=== PATIENT | female | born 1960 | race Caucasian/White ===

== ENCOUNTER 2018-04-09 16:08 | Emergency (ER) | payer OTHER ==
[~2018-04-09] VITALS: Ht 170.2 cm; Wt 59.0 kg
[~2018-04-09 16:08] MED LIST: BENTYL10 MG PO; PANTOPRAZOLE SO40 MG PO; ZOFRAN ODT4 MG
[2018-04-09 16:40] LABS: BASOPHILS % 0.3 % (0.0-1.0); EOSINOPHILS # (AUTO) 0.1 (0.0-0.4); EOSINOPHILS % 0.6 % (0.0-6.0); HEMATOCRIT 46.5 % (34.2-44.1); HEMOGLOBIN 16.7 g/dL (12.0-16.0); LYMPHOCYTES # (AUTO) 3.1 (1.0-3.2); LYMPHOCYTES % 33.7 % (18.0-39.1); MEAN CORPUSCULAR HEMOGLOBIN 34.6 pg (28-32); MEAN CORPUSCULAR HGB CONC 35.9 g/dL (31-35); MEAN CORPUSCULAR VOLUME 96.5 fL (81-99); MONOCYTES # (AUTO) 1.1 (0.2-0.8); MONOCYTES % 11.4 % (4.4-11.3); NEUTROPHILS % 53.7 % (38.7-80.0); PLATELET COUNT 369 x10e3/uL (140-360); RED BLOOD COUNT 4.82 x10e6/uL (3.6-5.1); RED CELL DISTRIBUTION WIDTH 13.5 % (11.7-14.4)
[2018-04-09 16:44] LABS: INR 0.98; PROTHROMBIN TIME 12.2 seconds (11.9-14.5)
[2018-04-09 16:45] LABS: PARTIAL THROMBOPLASTIN TIME 27.7 seconds (23.8-35.5)
[2018-04-09 16:53] LABS: ALANINE AMINOTRANSFERASE 51 IU/L (0-55); ALBUMIN 4.6 g/dL (3.5-5.0); ALKALINE PHOSPHATASE 94 IU/L (40-150); AMYLASE 64 U/L (25-125); ANION GAP 21.2 mmol/L (8-16); BLOOD UREA NITROGEN 12 mg/dL (7-26); BUN/CREATININE RATIO 13 (6-25); CALCIUM 10.3 mg/dL (8.4-10.2); CARBON DIOXIDE 23 mmol/L (22-29); CHLORIDE 97 mmol/L (98-107); CREATINE KINASE 103 IU/L (29-168); CREATININE, SERUM 0.89 mg/dL (0.57-1.11); EST GLOMERULAR FILTRATION RATE > 60 ML/MIN (60-); GLUCOSE 110 mg/dL (74-118); LIPASE 32 U/L (8-78); POTASSIUM 4.2 mmol/L (3.5-5.1); SODIUM 137 mmol/L (136-145)
[2018-04-09] MEDS: SODIUM CHLORIDE 0.9% 1000ML 1,000 ML IV STA ×2 (17:14→19:50)
[2018-04-09] MEDS: ONDANSETRON HCL INJ 2 MG/ML VIAL IV STA (17:15)
[2018-04-09] MEDS: DONNATAL/LIDOCAINE/MAALOX 30 ML SUSP PO ONE (18:01)
[2018-04-09] MEDS ORDERED: MAGNESIUM/ALUMINUM/SIMETHICONE 30 ML UDC ONE (18:02)
[2018-04-09] MEDS ORDERED: BELLADONNA ALK/PHENOBARBITAL 5 ML UDC ONE (18:02)
[2018-04-09] MEDS ORDERED: LIDOCAINE VISC 2% SOLN 15 ML UDC ONE (18:02)
--- NOTE | 2018-04-09 19:07 | Diagnostic Imaging Report ---
EXAMINATION: PA and lateral views of the chest. COMPARISON: Portable chest 07/18/2012 CLINICAL HISTORY: Chest pain DISCUSSION: Lines/tubes: None. Lungs: The lungs are well inflated and grossly clear. There is no evidence of consolidation or pulmonary edema. Pleura: There is no pleural effusion or pneumothorax. Heart and mediastinum: Cardiomediastinal silhouette is unremarkable. Pulmonary vasculature is normal. Bones and soft tissues: No acute bony abnormalities. IMPRESSION: No acute cardiopulmonary abnormalities. Signed by: Dr. Alessandro Naqvi M.D. on 04/09/2018 7:04 PM
--- NOTE | 2018-04-09 19:18 | Diagnostic Imaging Report ---
EXAMINATION: CT of the abdomen and pelvis with contrast. TECHNIQUE: Spiral CT images of the abdomen and pelvis were performed from the lung bases to the lesser trochanters after the intravenous administration of 100 cc of Isovue 300 and the oral administration of water. Coronal and sagittal reformatted images were obtained. COMPARISON: CT abdomen and pelvis 01/18/2016 CLINICAL HISTORY:Epigastric pain, nausea and vomiting for 4 days DISCUSSION: ABDOMEN/PELVIS: LOWER THORAX:Stable bilateral emphysematous changes. 6 mm subpleural pulmonary nodule in the right lower lobe (series 2, image 4). Mild bilateral lower lobe dependent atelectasis. Linear subsegmental atelectasis versus scarring in the right middle lobe HEPATOBILIARY: Diffusely decreased attenuation of the hepatic parenchyma compared to the spleen, consistent with steatosis. No focal lesions. No intra or extrahepatic biliary ductal dilation. GALLBLADDER: No radio-opaque stones or sludge. No wall thickening. SPLEEN: No splenomegaly. PANCREAS: No focal masses or ductal dilatation. ADRENALS: Stable 4.1 x 2.4 cm right and 2.2 x 2.8 cm left low density adrenal masses (series 2, images 26 and 23).. KIDNEYS/URETERS: No hydronephrosis, stones, or solid mass lesions. Stable fluid density 0.9 cm simple cyst in the anterior right interpolar region (series 2, image 35). Stable 1.5 cm fluid density simple cyst in the right interpolar region (series 2, image 31). Bilateral extrarenal pelves.. PELVIC ORGANS/BLADDER: Bladder is moderately distended but grossly unremarkable. No wall thickening or focal lesions. Uterus is unremarkable. No adnexal masses. PERITONEUM/RETROPERITONEUM: No free air or fluid. LYMPH NODES: No intra-abdominal, retroperitoneal, pelvic or inguinal lymphadenopathy. VESSELS: Atherosclerotic calcification of the abdominal aorta and iliac vessels. GI TRACT: No bowel dilation or evidence of obstruction. No pericolonic inflammatory changes. Scattered diverticula in the distal descending and sigmoid colon, without diverticulitis. Stomach is unremarkable. BONES AND SOFT TISSUE: No aggressive lytic lesions. Marked facet hypertrophy L4-L5 and L5-S1. Soft tissues are grossly unremarkable. IMPRESSION: 1. No acute abdominopelvic abnormalities. Essentially unremarkable appearance of the bowel. 2. Diffuse hepatic steatosis. No focal lesions. 3. Stable bilateral adrenal low density masses, which may represent adenomas. CT abdomen with adrenal mass protocol is recommended on a nonemergent basis. 4. Stable emphysematous changes. 6 mm subpleural pulmonary nodule in the right lower lobe. Recommend follow-up chest CT in 12 months to document stability. . Signed by: Dr. Alessandro Naqvi M.D. on 04/09/2018 7:15 PM
[2018-04-09] MEDS: MORPHINE SULFATE 5 MG/ML VIAL IV ONE (20:02)
[2018-04-09] MEDS: MORPHINE SULFATE 2 MG/ML SYR IV STA (20:03)
[2018-04-09] MEDS ORDERED: IOPAMIDOL 370 MG/ML 200 ML INFUS..BTL INJ ONE (21:19)
[2018-04-09] MEDS ORDERED: SODIUM CHLORIDE 0.9% 50ML 50 ML ONE (21:19)
== END 2018-04-09 21:06 | disposition home or self-care (01) ==
LOC: ER 16:08
DX: R10.13 Epigastric pain (principal); E86.9 Volume depletion, unspecified; K52.9 Noninfective gastroenteritis and colitis, unspecified; K21.9 Gastro-esophageal reflux disease without esophagitis
CPT/HCPCS: 36415; 71046; 74177; 80053; 82150; 82550; 82553; 83690; 83735; 84484; 85025; 85610; 85730; 93005; 99284; J2270; J2405; J7030; Q9967

== ENCOUNTER 2020-05-18 12:13 | Emergency (ER) | payer SELFPAY ==
[~2020-05-18] VITALS: Ht 170.2 cm; Wt 59.0 kg
--- OUTSIDE RECORDS SUMMARY | 2020-05-18 13:08 | XMS REPORT | Clinical Summary ---
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 Active omeprazole (PriLOSEC) 20 Take 20 mg by 0 MG capsule mouth daily. Active metoprolol Take 1 tablet 0 ta-hydrochlorothiaz by mouth 2 (LOPRESSOR HCT) 50-25 mg (two) times a per tablet day. Active bismuth subsalicylate Take 15 mL by 0 (PEPTO BISMOL) 262 mg/15 mouth every 6 mL suspension (six) hours as needed for indigestion. Active loperamide (IMODIUM) 2 mg Take 2 mg by 0 capsule mouth 4 (four) times a day as needed for diarrhea. Active ibuprofen (ADVIL) 200 MG Take 200 mg 0 tablet by mouth every 6 (six) hours as needed for mild pain. 03/02/2020 Discontinued sulfamethoxazole-trimetho Take 1 tablet 10 tablet 0 prim (BACTRIM DS) 800-160 by mouth 0 mg per tablet every 12 (twelve) hours for 5 days. 03/07/2020 sulfamethoxazole-trimetho Take 1 tablet 10 tablet 0 prim (BACTRIM DS) 800-160 by mouth 0 mg per tablet every 12 (twelve) hours for 5 days. 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 06/21/2017 Cancer Staging: Pathologic stage from : Stage IB (T2a, N0, cM0) - Signed by Gildardo Chaidez MD on 06/30/20 17 Adenocarcinoma 05/29/2017 Urinary tract infection without hematuria 05/10/2017 Generalized abdominal pain 05/10/2017 Overview: Added automatically from request for joaquin pineda [id number] Encounters Care Team Description Date Type Specialty Jerome Saenz MD Solis, Daniel P., MD Nguyen, Daniel Nha, MD Pyelonephritis (Primary Dx); Nausea and vomiting, intractability of vomiting not specified, unspecified vomiting type 03/01/2020 Emergency General Internal Me dicine - 03/02/2020 Shawn Navarro MD 01/20/2020 Telephone Lab Rajesh Jo MD Shortness of breath (Primary Dx) 01/14/2020 Emergency Emergency Medicine 01/14/2020 Travel Jas Frederick MD Mastodynia (Primary Dx); Family history of malignant neoplasm of breast 08/15/2019 Transcribe Access Orders after 05/18/2019 Family History Medical History Relation Name Comments Heart disease Father Cancer Mother Diabetes Mother Heart disease Mother Relation Name Status Comments Father Mother Social History Date Tobacco Use Types Packs/Day Years Used Current Every Day Smoker Cigarettes 0.25 40 Smokeless Tobacco: Never Used Tobacco Cessation: Counseling Given: Yes Drinks/Week oz/Week Comments Alcohol Use No Sex Assigned at Date Recorded Not on file Industry Job Start Date Occupation Not on file Not on file Not on file Travel End Travel History Travel Start No recent travel history available. Last Filed Vital Signs Reading Time Taken Comments Vital Sign 150/85 03/02/2020 3:24 PM CDT Blood Pressure 75 03/02/2020 3:24 PM CDT Pulse 36.2 C (97.2 F) 03/02/2020 3:24 PM CDT Temperature 19 03/02/2020 3:24 PM CDT Respiratory Rate 96% 03/02/2020 3:24 PM CDT Oxygen Saturation - - Inhaled Oxygen Concentration 59 kg (130 lb 1.1 oz) 03/01/2020 4:10 PM CDT Weight 167.6 cm (5' 6") 03/01/2020 5:45 PM CDT Height 20.99 03/01/2020 4:10 PM CDT Body Mass Index Plan of Treatment Health Maintenance Due Date Last Done Comments CERVICAL CANCER SCREENING 1982 COLONOSCOPY SCREENING 2011 SHINGLES VACCINES (#1) 2011 INFLUENZA VACCINE 05/15/2020 BREAST CANCER SCREENING 08/21/2021 08/21/2019 Implants Device Identifier Shelf Expiration Date Model / Serial / L ot Implanted 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 [id number] / / Matrix [employer] Floseal 5ml W/ Humn F2 Surgical N/A: N/A AGOSTO - [id number] Implants; BIOSCIENCE Implanted: 06[facility]21/2017 [facility] Extenders; Surgical Wires [id number] / / [employer] Floseal 5ml W/ Humn F2 Surgical N/A: N/A AGOSTO - [id number] Implants; BIOSCIENCE Implanted: 06/21/2017 at [facility] not on file) Extenders; Surgical Wires 09/11/2021 [id number] / / [id number] Particle [employer] Absrbl Bonnie 5gm Surgical N/A: N/A MEDAFOR Mph - [id number] Implants; Implanted: 06/21/2017 at [facility] ([facility] not on file) Extenders; Surgical Wires Procedures Comments Procedure Name Priority Date/Time Associated Diag nosis US GALLBLADDER Routine 03/02/2020 9:34 AM CDT ESTIMATED GFR Routine 03/02/2020 5:05 AM CDT HC COMPLETE BLD COUNT Routine 03/02/2020 W/AUTO DIFF 5:05 AM CDT COMPREHENSIVE METABOLIC Routine 03/02/2020 PANEL 5:05 AM CDT TROPONIN Timed 03/01/2020 5:00 PM CDT LACTIC ACID LEVEL, SEPSIS Timed 03/01/2020 - NOW AND REPEAT 2X EVERY 5:00 PM CDT 3 HOURS BLOOD CULTURE, AEROBIC & Routine 03/01/2020 ANAEROBIC 2:44 PM CDT BLOOD CULTURE, AEROBIC & Routine 03/01/2020 ANAEROBIC 2:40 PM CDT LIPASE LEVEL Routine 03/01/2020 2:34 PM CDT TROPONIN Timed 03/01/2020 2:34 PM CDT LACTIC ACID LEVEL, SEPSIS Timed 03/01/2020 - NOW AND REPEAT 2X EVERY 2:34 PM CDT [address] CHEST W CONTRAST STAT 03/01/2020 ABDOMEN W CONTRAST PELVIS 1:14 PM CDT W CONTRAST ECG 12-LEAD STAT 03/01/2020 11:11 AM CDT URINE CULTURE STAT 03/01/2020 11:04 AM CDT URINALYSIS SCREEN AND STAT 03/01/2020 MICROSCOPY, WITH REFLEX 10:50 AM CDT TO CULTURE ECG ED PRELIMINARY Routine 03/01/2020 INTERPRETATION 10:49 AM CDT CREATINE KINASE, TOTAL STAT 03/01/2020 (CPK) 10:43 AM CDT B NATRIURETIC PEPTIDE STAT 03/01/2020 10:43 AM CDT TROPONIN STAT 03/01/2020 10:43 AM CDT ESTIMATED GFR STAT 03/01/2020 10:43 AM CDT LACTIC ACID LEVEL, SEPSIS STAT 03/01/2020 - NOW AND REPEAT 2X EVERY 10:43 AM CDT 3 HOURS HEPATIC FUNCTION PANEL STAT 03/01/2020 10:43 AM CDT BASIC METABOLIC PANEL STAT 03/01/2020 10:43 AM CDT HC COMPLETE BLD COUNT STAT 03/01/2020 W/AUTO DIFF 10:[address] ANGIOGRAM PE CHEST STAT 01/14/2020 8:41 PM CDT TROPONIN Timed 01/14/2020 7:41 PM CDT XR CHEST 1 VW STAT 01/14/2020 6:13 PM CDT ESTIMATED GFR STAT 01/14/2020 5:40 PM CDT B NATRIURETIC PEPTIDE STAT 01/14/2020 5:40 PM CDT TROPONIN STAT 01/14/2020 5:40 PM CDT COMPREHENSIVE METABOLIC STAT 01/14/2020 PANEL 5:40 PM CDT HC COMPLETE BLD COUNT STAT 01/14/2020 W/AUTO DIFF 5:40 PM CDT INFLUENZA ANTIGEN TEST, Routine 01/14/2020 REFLEX NEGATIVE TO RPP 5:18 PM CDT COVID BIOREF (NCOVB) STAT 01/14/2020 5:17 PM CDT STREP SCREEN CULTURE Routine 01/14/2020 5:17 PM CDT GROUP A STREP, RAPID Routine 01/14/2020 ANTIGEN 5:17 PM CDT RESPIRATORY PATHOGEN STAT 01/14/2020 PANEL 5:15 PM CDT ECG ED PRELIMINARY Routine 01/14/2020 INTERPRETATION 5:12 PM CDT ECG 12-LEAD STAT 01/14/2020 4:56 PM CDT MAMMO BREAST DIAGNOSTIC Routine 08/21/2019 Mastod ynia TOMOSYNTHESIS BILATERAL 9:14 AM 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 The tail of the is not well seen on the current study . LIVER: The visualized liver has no ma ss lesion. There is no intrahepatic biliary dilatation. The liver has a nor mal echogenic appearance. CBD: 0.5 cm. , within normal limit s. Portal vein: The portal vein demonstrat es normal hepatopedal flow. Gallbladder: The gallbladder is witho ut evidence of calculi. The gallbladder wall is not thickened and there is no p ericholecystic fluid. IMPRESSION: 1. Normal gallbladder ultrasound examin ation. 2. The common bile duct is not dilated. [id number] Procedure Note Hm Interface, Radiology Results Incoming - 03/02/2020 9:47 AM CDT EXAMINATION: US GALLBLADDER CLINICAL HISTORY: Abd pain unspecified COMPARISON: April 2018 FINDINGS: PANCREAS: The head and body of the pancreas are unremarkable. The tail of the is not well seen on the current study. LIVER: The visualized liver has no mass lesion. There is no intrahepatic biliary dilatation. The liver has a normal echogenic appearance. CBD: 0.5 cm. , within normal limits. Portal vein: The portal vein demonstrates normal hepatopedal flow. Gallbladder: The gallbladder is without evidence of calculi. The gallbladder wall is not thickened and there is no pericholecystic fluid. IMPRESSION: 1. Normal gallbladder ultrasound examina tion. 2. The common bile duct is not dilated. [id number] Performing Organization Address City/[facility]/Count Includes [facility] one Number [facility] [address] [place] [address] * Estimated GFR (03/02/2020 5:05 AM CDT) Only the most recent of 3 results within the time period is included. Estimated GFR >=90 mL/min/1.73 m2 [facility] Comment: [facility] G1 >=90 Normal or high G2 60-89 Mildly decreased G3a 45-59 Mildly to moderately decreased G3b 30-44 Moderately to severely decreased G4 15-29 Severely decreased G5 <15 Kidney failure The eGFR was calculated using the Chronic Kidney Disease Epidemiology Collaboration (CKD-EPI) equation. Interpretation is based on recommendations of the National Kidney Foundation-Kidney Disease Outcomes Quality Initiative (NKF-KDOQI) published in 2014. Specimen Performing Organization Address City/State/[facility] Ph one Number [facility] DEPARTMENT OF [address] [place] [place] [phone] PATHOLOGY AND GENOMIC MEDICINE [facility] [address] [place] [address] HOSPITAL * CBC with platelet and differential (03/02/2020 5:05 AM CDT) Only the most recent of 3 results within the time period is included. WBC 6.4 4.2 - 11.0 k/uL [facility] RBC 4.11 4.04 - 5.86 m/uL [facility] HGB 13.1 11.5 - 15.3 g/dL [facility] HCT 40.0 34.0 - 45.0 % [facility] MCV 97.3 80.0 - 98.0 fL [facility] MCH 31.9 27.0 - 34.0 pg [facility] MCHC 32.8 31.5 - 36.5 g/dL [facility] RDW - SD 50.0 37.0 - 51.0 fL [facility] MPV 9.8 7.4 - 10.4 fL [facility] Platelet count 159 150 - 400 k/uL [facility] Nucleated RBC 0.00 /100 WBC [facility] Neutrophils 44.2 36.0 - 66.0 % [facility] Lymphocytes 43.8 24.0 - 44.0 % [facility] Monocytes 11.1 (H) 0.0 - 6.0 % [facility] Eosinophils 0.5 0.0 - 6.0 % [facility] Basophils 0.2 0.0 - 1.2 % [facility] Immature 0.2 0.0 - 1.0 % [facility] granulocytes [facility] Specimen Blood Performing Organization Address City/State/Zipcode Ph one Number [facility] DEPARTMENT OF [address] [place] [phone] PATHOLOGY AND GENOMIC MEDICINE [facility] [address] * Comprehensive metabolic panel (03/02/2020 5:05 AM CDT) Only the most recent of 2 results within the time period is included. Sodium 139 135 - 150 mEq/L [facility] Potassium 3.6 3.5 - 5.0 mEq/L [facility] Chloride 102 98 - 112 mEq/L [facility] CO2 25 24 - 31 mmol/L [facility] Anion gap 12@ANIO 7 - 15 mEq/L [facility] BUN 12 7 - 18 mg/dL [facility] Creatinine 0.60 0.50 - 0.90 mg/dL [facility] Glucose 101 (H) 65 - 100 mg/dL [facility] Calcium 9.3 8.3 - 10.2 mg/dL [facility] Protein 6.8 6.3 - 8.3 g/dL [facility] Albumin 3.2 (L) 3.5 - 5.0 g/dL [facility] A/G ratio 0.9 0.7 - 3.8 [facility] Alkaline 63 0 - 104 U/L [facility] phosphatase [facility] AST 33 10 - 35 U/L [facility] ALT 48 5 - 50 U/L [facility] Total bilirubin 0.4 0.2 - 1.2 mg/dL [facility] Specimen Blood Performing Organization Address City/[facility] Ph one Number [facility] DEPARTMENT OF [address] [place] [address] PATHOLOGY AND GENOMIC MEDICINE [address] * Lactic acid level, SEPSIS - Now and repeat 2x every 3 hours (03/01/2020 5:00 PM CDT) Only the most recent of 3 results within the time period is included. Lactic acid 1.3 0.5 - 2.2 mmol/L [facility] Specimen Blood Performing Organization Address City/[facility] Ph one Number [facility] DEPARTMENT OF [facility] [place] [address] PATHOLOGY AND GENOMIC MEDICINE [facility] [address] * Troponin (03/01/2020 5:00 PM CDT) Only the most recent of 5 results within the time period is included. Pathologist [facility] Troponin <0.006 0.000 - 0.040 ng/mL [facility] Comment: [facility] In patients suspected of [place] having a myocardial HOSPITAL infarction, along with all other appropriate clinical measures and actions including ECG and other diagnostics as appropriate, measure Ultra TnI at 0 hrs and at 3 hrs. Myocardial infarction VERY LIKELY The 0 hr TnI level is > 0.10 ng/mL Myocardial infarction LIKELY The 0 hr TnI level is > 0.04 ng/mL and 3 hr level is increased or decreased by at least 0.020 ng/mL Myocardial infarction VERY UNLIKELY Both the 0 hr and 3 hr TnI levels <= 0.04 ng/mL(within normal limits) OR 0 hr is > 0.04 ng/mL and 3 hr is increased OR decreased by less than 0.020 ng/mL Specimen Blood Performing Organization Address City/State/[facility] Ph one Number [facility] DEPARTMENT OF [address] [place] [address] PATHOLOGY AND GENOMIC MEDICINE [place] [facility] [place] [address] * Blood culture, aerobic & anaerobic (03/01/2020 2:44 PM CDT) Only the most recent of 2 results within the time period is included. [facility] Blood culture No growth after 5 days of [facility] isolate incubation. [facility] Comment: HOSPITAL Specimen Information Specimen Source: Blood Specimen Site: unknown Specimen Blood Performing Organization Address City/[facility] Ph one Number [facility] DEPARTMENT OF [address] [place] [address] PATHOLOGY AND GENOMIC MEDICINE [place] [address] [place] [address] HOSPITAL * Lipase level (03/01/2020 2:34 PM CDT) Lipase 18 13 - 60 U/L [facility] Specimen Blood Performing Organization Address City/State/Zipcode Ph one Number [facility] DEPARTMENT OF [address] [place] [address] PATHOLOGY AND GENOMIC MEDICINE [facility] [address] [place] [address] HOSPITAL * CT Chest W Contrast Abdomen W Contrast Pelvis W Contrast (03/01/2020 1:14 PM CDT) Specimen Narrative Performed At EXAMINATION: CT CHEST W CONTRAST ABDOMEN W CONTRAST PELVIS W CONTRAST [facility] CLINICAL HISTORY: Nausea vomiting, trauma TECHNIQUE: Multiple axial images of the chest, abdomen, and pelvis were obtained following intravenous administration of iodinated contrast. Sagittal and coronal computerized reformatted images were ob tained. CT scans are performed using radiation dose reduction techniques. Technical factors are evaluated and adjusted to e nsure appropriate moderation of exposure. Automated dose management technology is applied to adjust radiation exposure while achieving a diagnostic quality image. COMPARISON: 01/14/2020 FINDINGS: CT CHEST: Visualized portions of the thyroid glan d are unremarkable. The thoracic aorta has no aneurysmal dilatation. There is no evidence of any dissection. The heart has no pericardial effusion. There is no pleural effusion present. The right lung zones demonstrates mild emph ysematous changes to be present. There is a 7 mm nodular density seen in the righ t lung apex. It is unchanged from prior study. Calcified granuloma seen in the superio r aspect of the right lower lobe. There is a 6 mm subpleural nodule seen in the right lower lobe medially which is unchanged from the prior study. Mild at electasis seen at the right lung base. The left lung zone demonstrates emphyse matous changes to be present. There is no pleural effusion or pneumothorax. Atele ctasis is seen in the left lung base. IMPRESSION: 1. Diffuse emphysematous changes. 2. There is minimal dependent atelectas is seen at the lower lung bases. 3. There has been no significant interv al change in the right upper lobe nodule and a subpleural right lower lobe nodul e. 4. The previously seen punctate subpleu ral nodules on the prior study are not identified on the current study. 4. For further evaluation, follow-up CT scanning is recommended in 5-[address] ABDOMEN: The gallbladder is unremarkable. The pancreas does not demonstrate any m asses. The spleen and liver are unremarkable. There is bilateral enlargement of the l eft and right lobes of the thyroid gland. This was seen on prior study in May 03 and demonstrates no change. The left adrenal gland measures 2.2 cm. The righ t adrenal gland measures 4.2 cm. There is no retroperitoneal adenopathy. The abdominal aorta has no aneurysmal dilatation or dissection. The kidneys do not have any solid renal mass or hydronephrosis. There is a 1.3 cm cyst seen within the lower pole of t he left kidney. A 1 cm cyst is seen in the upper pole of the right kidney. CT PELVIS: There is no evidence of any pneumoperit oneum. Stomach does not have any wall thickening. Small bowel is not dilated. There is no free fluid seen within the abdomen or the pelvis. Diverticulosis i s present. There is no focal diverticulitis. The bladder does not demonstrate any ma sses. Mild degenerative changes are present w ithin the lumbar spine. There is no evidence of any intra-abdom inal abscess. IMPRESSION: 1. Diverticulosis is present. There is no focal diverticulitis. 2. Moderate colonic fecal retention is present. 3. The abdomen and pelvis do not demons trate any masses. 4. There is no evidence of any intra-ab dominal abscess. 5. There is enlargement of the adrenal glands bilaterally. This finding is unchanged from the previous study. [id number] Procedure Note Interface, Radiology Results Incoming - 03/01/2020 1:51 PM CDT EXAMINATION: CT CHEST W CONTRAST ABDOMEN W CONTRAST PELVIS W CONTRAST CLINICAL HISTORY: Nausea vomiting, trauma TECHNIQUE: Multiple axial images of the chest, abdomen, and pelvis were obtained following intravenous administration of iodinated contrast. Sagittal and coronal computerized reformatted images were obtained. CT scans are performed using radiation dose reduction techniques. Technical factors are evaluated and adjusted to ensure appropriate moderation of exposure. Automated dose management technology is applied to adjust radiation exposure while achieving a diagnostic quality image. COMPARISON: 01/14/2020 FINDINGS: CT CHEST: Visualized portions of the thyroid gland are unremarkable. The thoracic aorta has no aneurysmal dilatation. There is no evidence of any dissection. The heart has no pericardial effusion. There is no pleural effusion present. The right lung zones demonstrates mild emphysematous changes to be present. There is a 7 mm nodular density seen in the right lung apex. It is unchanged from prior study. Calcified granuloma seen in the superior aspect of the right lower lobe. There is a 6 mm subpleural nodule seen in the right lower lobe medially which is unchanged from the prior study. Mild atelectasis seen at the right lung base. The left lung zone demonstrates emphysematous changes to be present. There is no pleural effusion or pneumothorax. Atelectasis is seen in the left lung base. IMPRESSION: 1. Diffuse emphysematous changes. 2. There is minimal dependent atelectasi s seen at the lower lung bases. 3. There has been no significant interva l change in the right upper lobe nodule and a subpleural right lower lobe nodule. 4. The previously seen punctate subpleur al nodules on the prior study are not identified on the current study. 4. For further evaluation, follow-up CT scanning is recommended in 5-[address] ABDOMEN: The gallbladder is unremarkable. The pancreas does not demonstrate any masses. The spleen and liver are unremarkable. There is bilateral enlargement of the left and right lobes of the thyroid gland. This was seen on prior study in April 2018 and demonstrates no change. The left adrenal gland measures 2.2 cm. The right adrenal gland measures 4.2 cm. There is no retroperitoneal adenopathy. The abdominal aorta has no aneurysmal dilatation or dissection. The kidneys do not have any solid renal mass or hydronephrosis. There is a 1.3 cm cyst seen within the lower pole of the left kidney. A 1 cm cyst is seen in the upper pole of the right kidney. CT PELVIS: There is no evidence of any pneumoperitoneum. Stomach does not have any wall thickening. Small bowel is not dilated. There is no free fluid seen within the abdomen or the pelvis. Diverticulosis is present. There is no focal diverticulitis. The bladder does not demonstrate any masses. Mild degenerative changes are present within the lumbar spine. There is no evidence of any intra-abdominal abscess. IMPRESSION: 1. Diverticulosis is present. There is n o focal diverticulitis. 2. Moderate colonic fecal retention is p resent. 3. The abdomen and pelvis do not demonst rate any masses. 4. There is no evidence of any intra-abd ominal abscess. 5. There is enlargement of the adrenal g lands bilaterally. This finding is unchanged from the previous study. [id number] Performing Organization Address [facility]/Count Includes [facility] one Number [facility] [address] [place] [address] * ECG 12 lead (03/01/2020 11:11 AM CDT) Only the most recent of 2 results within the time period is included. Ventricular 89 [facility] rate Atrial rate 89 [facility] MO interval 138 [facility] QRSD interval 92 [facility] QT interval 382 [facility] QTC interval 464 [facility] P axis 1 82 [facility] QRS axis 1 -12 [facility] T wave axis 67 [facility] EKG impression Normal sinus rhythm-Normal [facility] ECG-In automated comparison with ECG of 14-JAN-2020 16:56,-Non-specific change in ST segment in Anterior leads-T wave inversion no longer evident in Anterolateral leads- Specimen Narrative Performed At This result has an attachment that is n ot available. Performing Organization Address [facility]/Count Includes [facility] one Number [facility] [address] [place] [address] * Urine culture (03/01/2020 11:04 AM CDT) Urine culture Proteus mirabilis HARRISON isolate >10-5 cfu/ml [facility] HOSPITAL characteristics of this assay on this isolate were validated by the Microbiology Laboratory at [facility]. This source has not been approved by the U.S. Food and Drug Administration. The results are not intended to be used as the sole means for clinical diagnosis or patient management. The Microbiology Laboratory is authorized under the clinical Laboratory Improvement Amendments of 1988 (CLIA-88) to perform high complexity testing. (A) Comment: Specimen Information Specimen Source: Urine Specimen Site: Clean catch Specimen Urine Antibiotic Method Susceptibility Organism Ampicillin TRISTAN >16 mcg/mL: Resistant Proteus mirabilis Amoxicillin/Clavulanate TRISTAN 8/4 mcg/mL: Susceptible Proteus mirabilis Amikacin TRISTAN 8 mcg/mL: Susceptible Proteus mirabilis Aztreonam TRISTAN <=1 mcg/mL: Susceptible [facility] Ceftazidime TRISTAN 1 mcg/mL: Susceptible [facility] Ciprofloxacin TRISTAN <=0.5 mcg/mL: Susceptible [facility] Ceftriaxone TRISTAN <=0.5 mcg/mL: Susceptible [facility] Cefuroxime Sodium TRISTAN <=4 mcg/mL: Susceptible [facility] Cefazolin TRISTAN 8 mcg/mL: Resistant [facility] Cefepime TRISTAN <=0.5 mcg/mL: Susceptible [facility] Nitrofurantoin TRISTAN >64 mcg/mL: Resistant [facility] Cefoxitin TRISTAN <=4 mcg/mL: Susceptible [facility] Gentamicin TRISTAN 4 mcg/mL: Susceptible [facility] Levofloxacin TRISTAN <=1 mcg/mL: Susceptible [facility] Tobramycin TRISTAN 2 mcg/mL: Susceptible [facility] Ampicillin/Sulbactam TRISTAN 8/4 mcg/mL: Susceptible [facility] Trimethoprim/Sulfamethoxazole TRISTAN >2/38 mcg/mL: Resistant [facility] Tetracycline TRISTAN >8 mcg/mL: Resistant [facility] Piperacillin/Tazobactam TRISTAN <=2/4 mcg/mL: Susceptible [facility] Ertapenem TRISTAN <=0.125 mcg/mL: Susceptible [facility] Tigecycline TRISTAN mcg/mL: Resistant Proteus mir[facility]is Performing Organization Address City/State/[facility] [place] Ph one Number [facility] DEPARTMENT OF [address] [place] [address] PATHOLOGY AND GENOMIC MEDICINE [address] * Urinalysis screen and microscopy, with reflex to culture (03/01/2020 10:50 AM CDT) Specimen site Clean catch [facility] Color, UA Nithya [facility] Appearance, UA Turbid [facility] Specific 1.027 1.001 - 1.035 [place] gravity, UA [facility] pH, UA 8.0 5.0 - 8.5 [facility] Protein, UA 2+ (A) Negative [facility] Glucose, UA Negative Negative [facility] Ketones, UA Trace (A) Negative [facility] Bilirubin, UA Negative Negative [facility] Blood, UA Small (A) Negative [facility] Nitrite, UA Positive (A) Negative [facility] Urobilinogen, Negative <2.0 [facility] Leukocyte Large (A) Negative [place] esterase, UA [facility] Epithelial Many /HPF [place] cells, UA [facility] WBC, UA >200 (H) 0 - 5 /HPF [facility] RBC, UA 21 (H) 0 - 5 /HPF [facility] Bacteria, UA Many (A) None seen [facility] Yeast, UA None seen [facility] Yeast with None seen [place] pseudohyphae, [facility] Triple Few [place] phosphate [facility] crystals, [facility] Specimen Urine Performing Organization Address [facility] [place] Ph one Number [facility] DEPARTMENT OF [address] [place] [address] PATHOLOGY AND GENOMIC MEDICINE [address] * ECG ED Preliminary Interpretation - Not an Order (03/01/2020 10:49 AM CDT) Only the most recent of 2 results within the time period is included. Narrative Performed At Aristeo Birmingham MD 03/01/2020 2:32 PM ECG ED Preliminary Interpretation - Not an Order Performed by: Aristeo Birmingham MD Authorized by: Aristeo Birmingham MD ECG reviewed by ED Physician in the abs ence of a lottery clerk: yes Interpretation: Interpretation: normal Rate: ECG rate: 89 ECG rate assessment: normal Rhythm: Rhythm: sinus rhythm QRS: QRS axis: Normal QRS intervals: Normal Conduction: Conduction: normal ST segments: ST segments: Normal T waves: T waves: normal * B natriuretic peptide (03/01/2020 10:43 AM CDT) Only the most recent of 2 results within the time period is included. BNP 18 0 - 100 pg/mL [facility] Specimen Blood Performing Organization Address [facility] [place] Ph one Number [facility] DEPARTMENT OF [address] [place] [address] PATHOLOGY AND GENOMIC MEDICINE [address] [place] [address] HOSPITAL * Creatine kinase, total (CPK) (03/01/2020 10:43 AM CDT) Pathologist [facility] Creatine kinase 59 26 - 192 U/L [facility] Specimen Performing Organization Address [facility] [place] Ph one Number [facility] DEPARTMENT OF [address] [facility] [place] [address] PATHOLOGY AND GENOMIC MEDICINE [address] * Hepatic function panel (03/01/2020 10:43 AM CDT) [facility] Albumin 3.7 3.5 - 5.0 g/dL [facility] Total bilirubin 0.6 0.2 - 1.2 mg/dL [facility] Bilirubin <0.2 0.0 - 0.4 mg/dL [facility] Alkaline 74 0 - 104 U/L [facility] Protein 7.9 6.3 - 8.3 g/dL [facility] ALT 69 (H) 5 - 50 U/L [facility] AST 54 (H) 10 - 35 U/L [facility] Specimen Blood Performing Organization Address [facility] [place] Ph one Number [facility] DEPARTMENT OF [facility] [place] [address] PATHOLOGY AND GENOMIC MEDICINE [address] * Basic metabolic panel (03/01/2020 10:43 AM CDT) [facility] Sodium 141 135 - 150 mEq/L [facility] Potassium 3.3 (L) 3.5 - 5.0 mEq/L [facility] Chloride 101 98 - 112 mEq/L [facility] CO2 24 24 - 31 mmol/L [facility] Anion gap 16@ANIO (H) 7 - 15 mEq/L [facility] BUN 16 7 - 18 mg/dL [facility] Creatinine 0.60 0.50 - 0.90 mg/dL [facility] Glucose 103 (H) 65 - 100 mg/dL [facility] Calcium 9.7 8.3 - 10.2 mg/dL [facility] Specimen Blood Performing Organization Address City/State/Zipcode Ph one Number [facility] DEPARTMENT OF [address] [place] [address] PATHOLOGY AND GENOMIC MEDICINE [facility] [address] [place] [address] [address]OS[address]ITAL * CT Angiogram Pe Chest (01/14/2020 8:41 PM CDT) Specimen Narrative Performed At EXAMINATION: [facility] CT ANGIOGRAM PE CHEST CLINICAL HISTORY: hx of lung cancer s ob malaise TECHNIQUE: CT angiographic images of the chest wer e obtained during intravenous administration of iodinated contrast. C omputerized reformatted images and 3-D MIP images were also obtained and archi juan josé (CT pulmonary embolus protocol). Approximately 60 cc of Visipaque [address] scan performed using radiation d ose reduction techniques. Technical factors are evaluated and adjusted to e nsure appropriate moderation of exposure. Automated dose management technology is applied to adjust the radiation dose to minimize expose while achieving a diagnostic quality image. COMPARISON: CT chest 04/25/2018 FINDINGS: The main pulmonary artery, right pulmon cheyenne artery and left pulmonary artery as well as their visualized segmental and subsegmental branches demonstrate no evidence of pulmonary embolism. The pul monary arteries are normal in caliber. There is no evidence of aortic aneurysm or dissection. No mediastinum, hilar or axillary patho logic adenopathy is seen. The heart is normal in caliber. No maddison cardial effusion is seen. Patchy right basilar mosaic attenuation s are seen. There is no evidence of consolidation. No pneumothorax is seen. An approximately 9 mm subpleural nodule within the left lung base has developed in the interim, series 3 image #91. 2 smaller subpleural nodular densities within the peripheral aspect of the left lung base, series 3 image #77, also new. Scattered subpleur al nodular densities are also seen along the posterior lateral aspect of the rig ht lung base, series 3 images 79-94. These are new when compared to prior exam. An approximatel y 5 mm right lower lobe subpleural nodule is stable, series 3 image #71. Approxim ately 6.4 mm right apical groundglass nodule is also stable. Centrilobular an d paraseptal emphysema as prior.. There is no evidence of pneumothorax. No pulmonary nodule or ma ss is present. Bilateral low-density adrenal nodules, right greater than left, as prior. The image portion of the abdomen viscera is otherwise unremarkable. IMPRESSION: No CTA evidence of pulmonary embolism. No CTA evidence of aortic aneurysm or d issection. Nonspecific patchy right basilar mosaic attenuations, suggesting of small airway disease or small vessel disease. No CT evidence of pneumonia. Indeterminate approximately 9 mm left b asilar pulmonary nodule and patchy bibasilar pulmonary nodular densities d eveloped in the interim. Recommend clinical correlation and short-term fol low-up with CT chest in 3-4 months to document stability/resolution. Additional chronic findings as prior. [id number] Procedure Note Hm Interface, Radiology Results Incoming - 01/14/2020 9:13 PM CDT EXAMINATION: CT ANGIOGRAM PE CHEST CLINICAL HISTORY: hx of lung cancer sob malaise TECHNIQUE: CT angiographic images of the chest were obtained during intravenous administration of iodinated contrast. Computerized reformatted images and 3-D MIP images were also obtained and archived (CT pulmonary embolus protocol). Approximately 60 cc of Visipaque [address] scan performed using radiation dose reduction techniques. Technical factors are evaluated and adjusted to ensure appropriate moderation of exposure. Automated dose management technology is applied to adjust the radiation dose to minimize expose while achieving a diagnostic quality image. COMPARISON: CT chest 04/25/2018 FINDINGS: The main pulmonary artery, right pulmonary artery and left pulmonary artery as well as their visualized segmental and subsegmental branches demonstrate no evidence of pulmonary embolism. The pulmonary arteries are normal in caliber. There is no evidence of aortic aneurysm or dissection. No mediastinum, hilar or axillary pathologic adenopathy is seen. The heart is normal in caliber. No pericardial effusion is seen. Patchy right basilar mosaic attenuations are seen. There is no evidence of consolidation. No pneumothorax is seen. An approximately 9 mm subpleural nodule within the left lung base has developed in the interim, series 3 image #91. 2 smaller subpleural nodular densities within the peripheral aspect of the left lung base, series 3 image #77, also new. Scattered subpleural nodular densities are also seen along the posterior lateral aspect of the right lung base, series 3 images 79-94. These are new when compared to prior exam. An approximately 5 mm right lower lobe subpleural nodule is stable, series 3 image #71. Approximately 6.4 mm right apical groundglass nodule is also stable. Centrilobular and paraseptal emphysema as prior.. There is no evidence of pneumothorax. No pulmonary nodule or mass is present. Bilateral low-density adrenal nodules, right greater than left, as prior. The image portion of the abdomen viscera is otherwise unremarkable. IMPRESSION: No CTA evidence of pulmonary embolism. No CTA evidence of aortic aneurysm or dissection. Nonspecific patchy right basilar mosaic attenuations, suggesting of small airway disease or small vessel disease. No CT evidence of pneumonia. Indeterminate approximately 9 mm left basilar pulmonary nodule and patchy bibasilar pulmonary nodular densities developed in the interim. Recommend clinical correlation and short-term follow-up with CT chest in 3-4 months to document stability/resolution. Additional chronic findings as prior. [id number] Performing Organization Address [facility]/Count Includes [facility] one Number [facility] [address] [place] [address] * XR Chest 1 Vw (01/14/2020 6:13 PM CDT) Specimen Narrative Performed At EXAMINATION: XR CHEST 1 VW [facility] CLINICAL HISTORY: hx of left lung malig jonna cough SOB subjective fevers COMPARISON: 06/24/2017 FINDINGS: One view of the chest demonstrates no rmal cardiomediastinal silhouette. Pulmonary vasculature is within normal limits. No consolidation or pleural effusion is seen. There is no evidence of pneumothorax. Regional osseous structures is unremark able. IMPRESSION: No radiographic evidence of acute cardi opulmonary process or active disease of the chest. [id number] Procedure Note Interface, Radiology Results Incoming - 01/14/2020 6:26 PM CDT EXAMINATION: XR CHEST 1 VW CLINICAL HISTORY: hx of left lung malignancy cough SOB subjective fevers COMPARISON: 06/24/2017 FINDINGS: One view of the chest demonstrates normal cardiomediastinal silhouette. Pulmonary vasculature is within normal limits. No consolidation or pleural effusion is seen. There is no evidence of pneumothorax. Regional osseous structures is unremarkable. IMPRESSION: No radiographic evidence of acute cardiopulmonary process or active disease of the chest. [id number] Performing Organization Address [facility]/Count Includes [facility] one Number [facility] [address] [place] [address] * Influenza antigen test, reflex negative to RPP (01/14/2020 5:18 PM CDT) Pathologist [facility] Influenza Negative for Influenza A/B [place] antigen antigen. [facility] Comment: [place] Specimen [facility] Specimen Source: Nares Specimen Site: Right Specimen Nares - Right Performing Organization Address [facility]/Count Includes [facility] one Number [facility] DEPARTMENT OF [address] [place] [address] PATHOLOGY AND GENOMIC MEDICINE [facility] [address] * COVID BioRef (NCOVB) (01/14/2020 5:17 PM CDT) [facility] COVID BioRef Not Detected Not Detected BIOREFERENCE (NCOVB) Comment: LAB Testing performed at [facility] [address] [place] [address] NOTE: The COVID-19 assay has been cleared by the U.S. Food and Drug Administration under the Emergency Use Authorization (EUA). [facility] is designated as a high complexity laboratory by the Clinical Laboratory Improvement Amendments of 1988(CLIA) and is qualified to perform this test. ASSAY INFORMATION: Real Time RT-PCR NOTE: Please consider re-collection of a new specimen, if clinically indicated. Specimen Serum Performing Organization Address [facility]/Count Includes [facility] one Number [facility] DEPARTMENT OF [address] [place] [address] PATHOLOGY AND GENOMIC MEDICINE [facility] [address] [place] [address] * Group A strep, rapid antigen (01/14/2020 5:17 PM CDT) [facility] Group A strep, Negative for Group A [place] rapid antigen Streptococcus antigen. [facility] result Comment: [place] Specimen [facility] Specimen Source: Throat Specimen Site: Not otherwise specified Specimen Throat - Not otherwise specified Performing Organization Address [facility]/Count Includes [facility] one Number [facility] DEPARTMENT OF [address] [place] [id number] PATHOLOGY AND GENOMIC MEDICINE [facility] [address] [facility] [address] * Strep screen culture (01/14/2020 5:17 PM CDT) Strep screen No beta hemolytic Streptococci [place] N culture isolate isolated [facility] Comment: [place] Specimen Information HOSPITAL Specimen Source: Throat Specimen Site: Not otherwise specified Specimen Throat - Not otherwise specified Performing Organization Address City/State/[facility] Ph one Number [facility] DEPARTMENT OF [address] [place] [address] PATHOLOGY AND GENOMIC MEDICINE [place] [facility] [place] [address] [place] [address] HOSPITAL * Respiratory pathogen panel (01/14/2020 5:15 PM CDT) Pathologist [facility] Respiratory Negative for all pathogens [place] pathogen panel tested: [facility] Negative for Adenovirus HOSPITAL Negative for Coronavirus HKU1 Negative for Coronavirus NL63 Negative for Coronavirus 229E Negative for Coronavirus OC43 Negative for Human Metapneumovirus Negative for Rhinovirus/Enterovirus Negative for Influenza A Negative for Influenza A/H1 Negative for Influenza A/H3 Negative for Influenza A/H1-2009 Negative for Influenza B Negative for Parainfluenza Virus 1 Negative for Parainfluenza Virus 2 Negative for Parainfluenza Virus 3 Negative for Parainfluenza Virus 4 Negative for Respiratory Syncytial Virus Negative for Bordetella pertussis Negative for Chlamydophila pneumoniae Negative for Mycoplasma pneumoniae This real-time PCR assay detects the presence of nucleic acids (RNA or DNA) for the respiratory pathogens listed. A result of "Not-detected" does not exclude the possibility of the presence of one or more pathogens at concentrations less than the detectable limits of the assay. Comment: Specimen Information Specimen Source: Nares Specimen Site: Right Specimen Nares - Right Performing Organization Address City/[facility] [place] Ph one Number [facility] DEPARTMENT OF [address] AND [facility] * Mammo Breast Diagnostic Tomosynthesis Bilateral (08/21/2019 9:14 AM DIETARY COOK) Specimen Narrative Performed At PROCEDURE: MAMMO BREAST DIAGNOSTIC TOMOSYNTHESIS [facility] Computer aided detection with tomosynth esis was utilized for the interpretation. HISTORY: Patient is a 58-year-old fem lucia complaining of left breast pain. COMPARISON: There is no prior studies a vailable for comparison. DENSITY: The breast parenchyma is heter ogeneously dense, decreasing the sensitivity of the study. There is a be nign postbiopsy clip in the left breast. Prominent ducts in both retroareolar ar eas and benign scattered calcifications. There is no evidence of suspicious irregular masses, archite ctural distortions or grouped calcifications. IMPRESSION: Benign findings. RECOMMENDATION: Correlation with physic al exam and annual mammography. BI-RADS 2: Benign. This facility is accredited by The [facility] [employer] for Mammography. A negative x-ray report should not mike y biopsy if a dominant or clinically suspicious mass is present. Not all c ancers are identified by x-ray. 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
--- OUTSIDE RECORDS SUMMARY | 2020-05-18 13:08 | XMS REPORT | Continuity of Care Document ---
Author Author [facility] t Organization [facility] Address 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 Name Role Phone CAROLINE HERRERA, S HELEN PCP Fazal Menjivar MD, Akil Cano Attphys Vinnie HERRERA, PYaakov Alberts Attphys Sindy HERRERA, [facility] Aristeo Attphys Ramon HERRERA, Donovan Escobar Attphys Sandro HERRERA, Zachary Mena Attphys [phone] CAROLINE MARTIN Attphys Unavailable Ramírez CLIFFORD Attphys Unavailable ARISTEO GRIFFIN Admphys Unavailable Payers Payer Name Policy Type Policy Number Effective Date Expiration Date S susan BCBSBCBS CHOICE PPO/FEDERAL EMPL [id number] resentPPO xxxxxxxxxxxxxx 2019 00:00:00 Arnold Celestin [employer] Pos [id number] 2012 00:00:00 [place] [facility] Problems Condition Name Condition Details Condition Category Status Onset Date Resolution Date Last Treatment Date Treating Clinician Comments Source Pyelonephritis Pyelonephritis Disease Active 2020-03-01 00:00:00 Arnold Celestin Intractable pain Intractable pain Disease Active 2018-04-24 00:00:00 Arnold Celestin Colitis Colitis Disease Active 2018-04-23 00:00:00 Arnold Celestin 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 2017-06-21 00:00:0 0 Arnold Celestin Adenocarcinoma Adenocarcinoma Disease Active 2017-05-29 00:00:00 Arnold Celestin Urinary tract infection without hematuria Urinary trac t infection without hematuria Disease Active 2017-05-10 00:00:00 Josh Celestin Generalized abdominal pain Generalized abdominal pain Disease Active 2017-05-10 00:00:00 Overview: Added automaticall y from request for surgery [id number] Arnold Celestin Allergies, Adverse Reactions, Alerts Allergy Name Allergy Type Status Severity Reaction(s) Onset Date Inacti ve Date Treating Clinician Comments Source Penicillins Propensity to adverse reactions to drug Active Anaphylaxis 2017-05-10 00:00:00 Patient has tolerated ceftri axone without reaction Arnold Celestin PENICILLIN Allergy to Substance Active Severe 2012-07-18 00:00:00 [facility] Family History Family Member Diagnosis Comments Start Date Stop Date Source Natural father Heart disease Arnold Celestin Natural mother Cancer Arnold Nd thodist Natural mother Diabetes Arnold Me thodist Natural mother Heart disease Arnold Celestin Social History Social Habit Start Date Stop Date Quantity Comments Source History of tobacco use Cigarette Smoker Arnold Celestin Sex Assigned At Jennifer Celestin Cigarettes smoked current (pack per day) - Reported 00:00:00 2020-03-01 00:00:00 Arnold Celestin Cigarette pack-years 2020-03-01 00:00:00 2020-03-01 00:00:00 Arnold Celestin Alcohol intake 2020-03-01 00:00:00 2020-03-01 00:00:00 Current non-drinker of alcohol (finding) Arnold Celestin Smoking Status Start Date Stop Date Source Current every day smoker 2020-03-01 00:00:00 Jennifer Celestin Medications Ordered Medication Name Filled Medication Name Start Date Stop Da te Current Medication? Ordering Clinician Indication Dosage Frequency Signature (SIG) Comments Components Source LORAZepam (ATIVAN) 1 MG tablet 2020-03-02 17:04:07 Yes 1mg Q6H Take 1 mg by mouth every 6 (six) hours as needed for anxiety. Arnold Celestin omeprazole (PriLOSEC) 20 MG capsule 2020-03-02 17:04:07 Yes 20mg QD Take 20 mg by mouth daily. Arnold Celestin metoprolol ta-hydrochlorothiaz (LOPRESSOR HCT) 50-25 mg per tablet 2020-03-02 17:04:07 Yes 1{tbl} Q.5D Take 1 tablet by mouth 2 (two ) times a day. Arnold Celestin bismuth subsalicylate (PEPTO BISMOL) 262 mg/15 mL suspension 2020-03-02 17:04:07 Yes 15mL Q6H Take 15 mL by mouth every 6 (six) hours as needed for indigestion. Arnold Celestin loperamide (IMODIUM) 2 mg capsule 2020-03-02 17:04:07 Yes 2mg Q.25D Take 2 mg by mouth 4 (four) times a day as needed for diarrhea. Arnold Celestin ibuprofen (ADVIL) 200 MG tablet 2020-03-02 17:04:07 Yes 200mg Q6H Take 200 mg by mouth every 6 (six) hours as needed for mild pain. Arnold Celestin sulfamethoxazole-trimethoprim (BACTRIM DS) 800-160 mg per ta blet 2020-03-02 00:00:00 2020-03-07 23:59:00 No 1{tbl} Q.5D Take 1 tablet by mouth every 12 (twelve) hours for 5 days. Arnold Methjuan dist sulfamethoxazole-trimethoprim (BACTRIM DS) 800-160 mg per ta blet 2020-03-02 00:00:00 2020-03-02 00:00:00 No 1{tbl} Q.5D Take 1 tablet by mouth every 12 (twelve) hours for 5 days. Arnold Methjuan dist Dicyclomine Hcl (Bentyl) 10 Mg Capsule Dicyclomine Hcl (Bentyl) 10 Mg Capsule Yes 20 Every 6 Hours as needed for Abdo chong Pain [facility] Ondansetron (Zofran Odt) 4 Mg Tab.rapdis Ondansetron ( Zofran Odt) 4 Mg Tab.rapdis Yes 4 Every 6 Hours as needed for Nausea [facility] Pantoprazole Sodium (Protonix) 40 Mg Tablet. Pantopr azole Sodium (Protonix) 40 Mg Tablet.dr Parrish 40 Daily [facility] Vital Signs Vital Name Observation Time Observation Value Comments Source Systolic blood pressure 2020-03-02 15:24:19 150 mm[Hg] Arnold Celestin Diastolic blood pressure 2020-03-02 15:24:19 85 mm[Hg] Arnold Celestin Heart rate 2020-03-02 15:24:19 75 /min Arnold Celestin Body temperature 2020-03-02 15:24:19 36.22 Jocelin J Luis Celestin Respiratory rate 2020-03-02 15:24:19 19 /min J Luis Celestin Oxygen saturation in Arterial blood by Pulse oximetry 03-02 15:24:19 96 /min Arnold Celestin Body height 2020-03-01 17:45:00 167.6 cm Arnold Celestin Body weight 2020-03-01 16:10:00 59 kg Arnold Celestin BMI 2020-03-01 16:10:00 20.99 kg/m2 Arnold Celestin Procedures Procedure Date / Time Performed Performing Clinician Sourc e US GALLBLADDER 2020-03-02 09:34:34 Aristeo Griffin ethodist COMPREHENSIVE METABOLIC PANEL 2020-03-02 05:05:00 Aristeo Griffin HC COMPLETE BLD COUNT W/AUTO DIFF 2020-03-02 05:05:00 Iker Griffin ESTIMATED GFR 2020-03-02 05:05:00 Aristeo Griffin ethodist LACTIC ACID LEVEL, SEPSIS - NOW AND REPEAT 2X EVERY 3 HOURS 2020-03-01 17:00:00 Aristeo Birmingham TROPONIN 2020-03-01 17:00:00 Aristeo Birmingham Met hodist BLOOD CULTURE, AEROBIC & ANAEROBIC 2020-03-01 14:44:00 Iker Birmingham BLOOD CULTURE, AEROBIC & ANAEROBIC 2020-03-01 14:40:00 Iker Birmingham LACTIC ACID LEVEL, SEPSIS - NOW AND REPEAT 2X EVERY 3 HOURS 2020-03-01 14:34:00 Aristeo Birmingham TROPONIN 2020-03-01 14:34:00 Aristeo Birmingham Met hodist LIPASE LEVEL 2020-03-01 14:34:[address] CHEST W CONTRAST ABDOMEN W CONTRAST PELVIS W CONTRAST 202 13:14:18 Aristeo Birmingham ECG 12-LEAD 2020-03-01 11:11:21 Aristeo Birmingham Met hodist URINE CULTURE 2020-03-01 11:04:00 Aristeo Birmingham Met hodist URINALYSIS SCREEN AND MICROSCOPY, WITH REFLEX TO CULTURE 202 10:50:00 Aristeo Birmingham Spiritism ECG ED PRELIMINARY INTERPRETATION 2020-03-01 10:49:07 Brian Birmingham Spiritism HC COMPLETE BLD COUNT W/AUTO DIFF 2020-03-01 10:43:00 Brian Birmingham BASIC METABOLIC PANEL 2020-03-01 10:43:00 Aristeo Birmingham on Spiritism HEPATIC FUNCTION PANEL 2020-03-01 10:43:00 Aristeo Birmingham Spiritism LACTIC ACID LEVEL, SEPSIS - NOW AND REPEAT 2X EVERY 3 HOURS 2020-03-01 10:43:00 Aristoe Birmingham ESTIMATED GFR 2020-03-01 10:43:00 Aristeo Birmingham Met hodist TROPONIN 2020-03-01 10:43:00 Aristeo Birmingham Met hodist B NATRIURETIC PEPTIDE 2020-03-01 10:43:00 Aristeo Birmingham on Spiritism CREATINE KINASE, TOTAL (CPK) 2020-03-01 10:43:[address] [address] ANGIOGRAM PE CHEST 2020-01-14 20:41:05 Michelle Joist TROPONIN 2020-01-14 19:41:00 Michelle Jo on Spiritism XR CHEST 1 VW 2020-01-14 18:13:14 Michelle Jo on Spiritism HC COMPLETE BLD COUNT W/AUTO DIFF 2020-01-14 17:40:00 Dominique Jo se Spiritism COMPREHENSIVE METABOLIC PANEL 2020-01-14 17:40:00 Michelle Jo Spiritism TROPONIN 2020-01-14 17:40:00 Michelle Jo on Spiritism B NATRIURETIC PEPTIDE 2020-01-14 17:40:00 Michelle Jo Spiritism ESTIMATED GFR 2020-01-14 17:40:00 Michelle Jo on Spiritism INFLUENZA ANTIGEN TEST, REFLEX NEGATIVE TO RPP 2020-01-14 17 :18:00 Michelle Jo GROUP A STREP, RAPID ANTIGEN 2020-01-14 17:17:00 Michelle Jo STREP SCREEN CULTURE 2020-01-14 17:17:00 Michelle Jo COVID BIOREF (NCOVB) 2020-01-14 17:17:00 Michelle Jo RESPIRATORY PATHOGEN PANEL 2020-01-14 17:15:00 Michelle Jo Spiritism ECG ED PRELIMINARY INTERPRETATION 2020-01-14 17:12:50 Dominique oJ se ECG 12-LEAD 2020-01-14 16:56:45 Michelle Jo on Spiritism MAMMO BREAST DIAGNOSTIC TOMOSYNTHESIS BILATERAL 2019-08-21 0 9:14:00 System, Provider Not In [facility] Computed tomography of abdomen and pelvis with contrast 2017 00:00:00 ADIA CLIFFORD [facility] X-ray of chest, two views 2018-04-09 00:00:00 ADIA CLIFFORD [facility] Plan of Care Planned Activity Planned Date Details Comments Source Future Scheduled Test 2021-08-21 00:00:00 BREAST CANCER SCRE ENING [code = BREAST CANCER SCREENING] [facility] Future Scheduled Test 2020-05-15 00:00:00 INFLUENZA VACCINE [code = INFLUENZA VACCINE] [facility] Future Scheduled Test 2011 00:00:00 COLONOSCOPY SCREEN ING [code = COLONOSCOPY SCREENING] [facility] Future Scheduled Test 2011 00:00:00 SHINGLES VACCINES (#1) [code = SHINGLES VACCINES (#1)] [facility] Future Scheduled Test 1982 00:00:00 Screening for mu gnant neoplasm of cervix (procedure) [code = 935807136] [place] José Luis t Encounters Start Date/Time End Date/Time Encounter Type Admission Type Attendi [facility] Care Department Encounter ID Source 2020-03-01 00:00:00 2020-03-02 00:00:00 Outpatient JENNIFER GRIFFIN [place] [id number] [facility] 2020-01-14 00:00:00 2020-01-14 00:00:00 Emergency MICHELLE JO 064 [id number] Arnold Celestin 2019-08-21 00:00:00 2019-08-21 00:00:00 Outpatient Clara MARTIN [facility] [id number] Arnold Celestin 2018-04-09 16:08:00 2018-04-09 21:06:00 Departed Emergency Room 1 ADIA CLIFFORD [facility] [id number] [facility] Results Test Description Test Time Test Comments Results Result Comments Source Blood culture, aerobic & anaerobic 2020-03-06 18:03:05 Test Item Blood culture isolate (test code = 600-7) No growth after 5 days of incubation. Specimen InformationSpecimen Source: BloodSpecimen Site: unknown [place] SandraG 12 [id number] 10:05:09* Test Item Value Reference Range Interpretation Comments Ventricular rate (test code = 253) 89 Atrial rate (test code = 255) 89 CA interval (test code = 266) 138 QRSD interval (test code = 260) 92 QT interval (test code = 264) 382 QTC interval (test code = 265) 464 P axis 1 (test code = 267) 82 QRS axis 1 (test code = 268) -12 T wave axis (test code = 270) 67 EKG impression (test code = 273) Normal sinus rhythm-N ormal ECG-In automated comparison with ECG of 14-JAN-2020 16:56,-Non-specific change in ST segment in Anterior leads-T wave inversion no longer evident in Anterolateral leads-Electr onically Signed By Aman Herrera MD ([id number]) on 03/02/2020 10:05:08 AM Arnold Patrick [id number] 09:44:21 Interface, Radiology Results - 03/02/2020 9:47 AM CDTEXAMINATION: US GALLBLADDERCLINICAL HISTORY: Abd pain unspecifiedCOMPARISON: April 2018FINDINGS:PANCREAS: The head and body of the pancreas are unremarkable. The tail of the is not well seen on the current study.LIVER: The visualized liver has no mass lesion. There is no intrahepatic biliary dilatation. The liver has a normal echogenic appearance. CBD: 0.5 cm. , within normal limits.Portal vein: The portal vein demonstrates normal hepatopedal flow. Gallbladder: The gallbladder is without evidence of calculi. The gallbladder wall is not thickened and there is no pericholecystic fluid.IMPRESSION:1. Normal gallbladder ultrasound examination. 2. The common bile duct is not dilated.[id number] [facility] [id number] 06:04:36* Test Item Value Reference Range Interpretation Comments Sodium (test code = 2951-2) 139 135- 150 mEq/L Potassium (test code = 2823-3) 3.6 3.5- 5.0 mEq/L Chloride (test code = 2075-0) 102 98- 112 mEq/L CO2 (test code = 2027-9) 25 mmol/L 24-31 Anion gap (test code = 49539-7) 12@ANIO 7- 15 mEq/L BUN (test code = 3094-0) 12 mg/dL 7-18 Creatinine (test code = 2160-0) 0.60 mg/dL 0.5-0.9 Glucose (test code = 2345-7) 101 mg/dL 65-100 H Calcium (test code = 13827-8) 9.3 mg/dL 8.3-10.2 Protein (test code = 2885-2) 6.8 g/dL 6.3-8.3 Albumin (test code = 1751-7) 3.2 g/dL 3.5-5 L A/G ratio (test code = 1759-0) 0.9 0.7-3.8 Alkaline phosphatase (test code = 6768-6) 63 U/L 0-104 AST (test code = 1920-8) 33 U/L 10-35 ALT (test code = 1742-6) 48 U/L 5-50 Total bilirubin (test code = 1974-) 0.4 mg/dL 0.2-1.2 Lab Interpretation (test code = 88496-8) Abnormal Arnold SpiritismEstimated [id number] 06:04:35* Test Item Value Reference Range Interpretation Comments Estimated GFR (test code = 5488) >=90 mL/min/1.73 m2 Catergory Units InterpretationG1 >=90 Normal or highG2 60-89 Mildly tcjognbdyL8d 45-59 Mildly to moderately lzgxhaykfZ7k 30-44 Moderately to severely decreasedG4 15-29 Severely decreasedG5 <15 Kidney failureThe eGFR was calculated using the Chronic Kidney Disease Epidemiology Collaboration (CKD-EPI) equation. Interpretation is based on recommendations of the National Kidney Foundation-Kidney Disease Outcomes Quality Initiative (NKF-KDOQI) published in 2014. Barrett MethodistCBC with platelet and fkqsaaggstyw0104-03-25 05:37:04* Test Item Value Reference Range Interpretation Comments WBC (test code = 10521-9) 6.4 4.2- 11.0 k/uL RBC (test code = 08655-3) 4.11 m/uL 4.04-5.86 HGB (test code = 718-7) 13.1 g/dL 11.5-15.3 HCT (test code = 4544-3) 40.0 % 34-45 MCV (test code = 787-2) 97.3 fL 80-98 MCH (test code = 785-6) 31.9 pg 27-34 MCHC (test code = 786-4) 32.8 g/dL 31.5-36.5 RDW - SD (test code = 35688-9) 50.0 fL 37-51 MPV (test code = 06210-5) 9.8 fL 7.4-10.4 Platelet count (test code = 42235-2) 159 150- 400 k/uL Nucleated RBC (test code = 56857-6) 0.00 /100 WBC Neutrophils (test code = 98767-2) 44.2 % 36-66 Lymphocytes (test code = 80851-0) 43.8 % 24-44 Monocytes (test code = 49413-9) 11.1 % 0-6 H Eosinophils (test code = 73719-3) 0.5 % 0-6 Basophils (test code = 22347-4) 0.2 % 0-1.2 Immature granulocytes (test code = 79456-3) 0.2 % 0-1 Lab Interpretation (test code = 51605-1) Abnormal Arnold CelestinEjmrxecsyVkwtdrnd8967-07-52 17:56:41* Test Item Value Reference Range Interpretation Comments Troponin (test code = 18223-6) <0.006 0-0.04 In patients suspected of having a myocardial infarction, along with all other appropriate clinical measures and actions including ECG and other diagnostics as appropriate, measure Ultra TnI at 0 hrs and at 3 hrs.Myocardial infarction VERY LIKELYThe 0 hr TnI level is > 0.10 ng/mL Andriy cardial infarction LIKELYThe 0 hr TnI level is > 0.04 ng/mL and 3 hr level is increased or decreased by at least 0.020 ng/mL Myocardi al infarction VERY UNLIKELYBoth the 0 hr and 3 hr TnI levels <= 0.04 ng/mL(within normal limits) OR 0 hr is > 0.04 ng/mL and 3 hr is increased OR decreased by less than 0.020 ng/mL [place] MethodistLactic acid level, SEPSIS - Now and repeat 2x every 3 hours 2020-03-01 17:23:59* Test Item Value Reference Range Interpretation Comments Lactic acid (test code = 40748-6) 1.3 mmol/L 0.5-2.2 [place] MethodistLipase [id number] 16:25:49* Test Item Value Reference Range Interpretation Comments Lipase (test code = 3040-3) 18 U/L 13-60 [place] MethodistCT Chest W Contrast Abdomen W Contrast Pelvis W Contrast 2020-03-01 13:47:53Hm Interface, Radiology Results 03/01/2020 1:51 PM CDTEXAMINATION: CT CHEST W CONTRAST ABDOMEN W CONTRAST PELVIS W CONTRASTCLINICAL HISTORY: Nausea vomiting, traumaTECHNIQUE: Multiple axial images of the chest, abdomen, and pelvis were obtained following intravenous administration of iodinated contrast. Sagittal and coronal computerized reformatted images were obtained.CT scans are performed using radiation dose reduction techniques. Technical factors are evaluated and adjusted to ensure appropriate moderation of exposure. Automated dose management technology is applied to adjust radiation exposure while achieving a diagnostic quality image.COMPARISON: 01/14/2020FINDINGS:CT CHEST: Visualized portions of the thyroid gland are unremarkable. The thoracic aorta has no aneurysmal dilatation. There is no evidence of any dissection.The heart has no pericardial effusion. There is no pleural effusion present. The right lung zones demonstrates mild emphysematous changes to be present. There is a 7 mm nodular density seen in the right lung apex. It is unchanged from prior study.Calcified granuloma seen in the superior aspect of the right lower lobe.There is a 6 mm subpleural nodule seen in the right lower lobe medially which is unchanged from the prior study. Mild atelectasis seen at the right lung base.The left lung zone demonstrates emphysematous changes to be present. There is no pleural effusion or pneumoth orax. Atelectasis is seen in the left lung base.IMPRESSION:1. Diffuse emphysemat ous changes.2. There is minimal dependent atelectasis seen at the lower lung bas es.3. There has been no significant interval change in the right upper lobe nodu le and a subpleural right lower lobe nodule.4. The previously seen punctate subp leural nodules on the prior study are not identified on the current study.4. For further evaluation, follow-up CT scanning is recommended in 5-[address] ABDOM EN:The gallbladder is unremarkable.The pancreas does not demonstrate any masses. The spleen and liver are unremarkable.There is bilateral enlargement of the left and right lobes of the thyroid gland. This was seen on prior study in April 2018 and demonstrates no change. The left adrenal gland measures 2.2 cm. The right a drenal gland measures 4.2 cm.There is no retroperitoneal adenopathy. The abdomin al aorta has no aneurysmal dilatation or dissection.The kidneys do not have any solid renal mass or hydronephrosis. There is a 1.3 cm cyst seen within the lower pole of the left kidney. A 1 cm cyst is seen in the upper pole of the right kid fermín.CT PELVIS: There is no evidence of any pneumoperitoneum. Stomach does not ordaz ve any wall thickening. Small bowel is not dilated. There is no free fluid seen within the abdomen or the pelvis. Diverticulosis is present. There is no focal d iverticulitis.The bladder does not demonstrate any masses.Mild degenerative frias ges are present within the lumbar spine.There is no evidence of any intra-abdomi nal abscess.IMPRESSION:1. Diverticulosis is present. There is no focal diverticu litis.2. Moderate colonic fecal retention is present.3. The abdomen and pelvis d o not demonstrate any masses.4. There is no evidence of any intra-abdominal absc ess.5. There is enlargement of the adrenal glands bilaterally. This finding is u nchanged from the previous study.[id number] [facility]al[facility] centerB natriuretic [id number] 11:39:40* Test Item Value Reference Range Interpretation Comments BNP (test code = 14819-1) 18 pg/mL 0-100 [place] MethodistBasic metabolic [id number] 11:34:31* Test Item Value Reference Range Interpretation Comments Sodium (test code = 2951-2) 141 135- 150 mEq/L Potassium (test code = 2823-3) 3.3 3.5- 5.0 mEq/L L Chloride (test code = 2075-0) 101 98- 112 mEq/L CO2 (test code = 2027-9) 24 mmol/L 24-31 Anion gap (test code = 75275-0) 16@ANIO 7- 15 mEq/L H BUN (test code = 3094-0) 16 mg/dL 7-18 Creatinine (test code = 2160-0) 0.60 mg/dL 0.5-0.9 Glucose (test code = 2345-7) 103 mg/dL 65-100 H Calcium (test code = 62967-7) 9.7 mg/dL 8.3-10.2 Lab Interpretation (test code = 36260-7) Abnormal [place] MethodistHepatic function [id number] 11:34:31* Test Item Value Reference Range Interpretation Comments Albumin (test code = 1751-7) 3.7 g/dL 3.5-5 Total bilirubin (test code = 1974-) 0.6 mg/dL 0.2-1.2 Bilirubin direct (test code = 1967-) <0.2 0-0.4 Alkaline phosphatase (test code = 6768-6) 74 U/L 0-104 Protein (test code = 2885-2) 7.9 g/dL 6.3-8.3 ALT (test code = 1742-6) 69 U/L 5-50 H AST (test code = 1920-8) 54 U/L 10-35 H Lab Interpretation (test code = 35914-2) Abnormal [place] MethodistCreatine kinase, total (CPK)2020-03-01 11:34:31* Test Item Value Reference Range Interpretation Comments Creatine kinase (test code = 2157-6) 59 U/L 26-192 [place] MethodistUrinalysis screen and microscopy, with reflex to culture 2020-03-01 11:07:43* Test Item Value Reference Range Interpretation Comments Specimen site (test code = 0914861) Clean catch Color, UA (test code = 5778-6) Nithya Appearance, UA (test code = 5767-9) Turbid Specific gravity, UA (test code = 5811-5) 1.027 1.001-1.035 pH, UA (test code = 5803-2) 8.0 5.0-8.5 Protein, UA (test code = 75978-5) 2+ Negative A Glucose, UA (test code = 73488-4) Negative Negative Ketones, UA (test code = 2514-8) Trace Negative A Bilirubin, UA (test code = 5770-3) Negative Negative Blood, UA (test code = 5794-3) Small Negative A Nitrite, UA (test code = 5802-4) Positive Negative A Urobilinogen, UA (test code = 18487-5) Negative <2.0 Leukocyte esterase, UA (test code = 5799-2) Large Negative A Epithelial cells, UA (test code = 5787-7) Many /HPF WBC, UA (test code = 5821-4) >200 0- 5 /HPF H RBC, UA (test code = 73371-6) 21 0- 5 /HPF H Bacteria, UA (test code = 63811-9) Many None seen A Yeast, UA (test code = 11550-2) None seen Yeast with pseudohyphae, UA (test code = 16589-2) None seen Triple phosphate crystals, UA (test code = 5814-9) Few Lab Interpretation (test code = 16962-6) Abnormal [place] MethodistEC ED Preliminary Interpretation - Not an [id number] 10:49:07Aristeo Birmingham MD 03/01/2020 2:32 [facility] ED Preliminary Interpretation - Not an OrderPerformed by: Aristeo Birmingham MDAuthorized by: Aristeo Birmingham MD ECG reviewed by ED Physician in the absence of a market risk specialist: yes Interpretation: Interpretation: normal Rate: ECG rate: 89 ECG rate assessment: normal Rhythm: Rhythm: sinus rhythm QRS: QRS axis: Normal QRS intervals: NormalConduction: Conduction: normal ST segments: ST segments: NormalT waves: T waves: normal [facility] Respiratory pathogen [id number] 11:41:08Respiratory pathogen panelNegative for all pathogens tested:Negative for AdenovirusNegative for Coronavirus HZG1Scxfoxan for Coronavirus XS24Cicnsnno for Coronavirus 229ENegative for Coronavirus EE01Ztdlykiy for Human MetapneumovirusNegative for Rhinovirus/EnterovirusNegative for Influenza ANegative for Influenza A/H1N egative for Influenza A/F7Mqgnqfvh for Influenza A/H1-2009Negative for Influenza BNegative for Parainfluenza Virus 1Negative for Parainfluenza Virus 2Negative f or Parainfluenza Virus 3Negative for Parainfluenza Virus 4Negative for Respirato ry Syncytial VirusNegative for Bordetella pertussisNegative for Chlamydophila pn eumoniaeNegative for Mycoplasma pneumoniaeThis real-time PCR assay detects the p resence of nucleic acids (RNA or DNA) for the respiratory pathogens listed. A r esult of "Not-detected" does not exclude the possibility of the presence of one or more pathogens at concentrations less than the detectable limits of the assay . Comment: Specimen InformationSpecimen Source: [facility] Site: Right JACK Guaman [facility] MethodistCOVID BioRef (NCOVB)2020-01-20 11:09:46* Test Item Value Reference Range Interpretation Comments COVStudyTubef (NCOVB) (test code = 90466-4) Not Detected Not Detecte d Testing performed at [facility] [address] [place] [id number] NOTE: The COVID-19 assay has been cleared by the U.S. Food and Drug Administration under the Emergency Use Authorization (EUA). [employer] is designated as a high complexity laboratory by the Clinical Laboratory Improvement Amendments of 1988(CLIA) and is qualified to perform this test. ASSAY INFORMATION: Real Time RT-PCR NOTE: Please consider re- collection of a new specimen, if clinically indicated. Arnold OrdonezistStrep screen qxowuqm6522-04-89 21:03:48* Test Item Value Reference Range Interpretation Comments Strep screen culture isolate (test code = 2246) No bet a hemolytic Streptococci isolated Specimen Information Specimen Source: ThroatSpecimen Site: Not otherwise specified Arnold MethodistInfluenza antigen test, reflex negative to [id number] 22:16:00* Test Item Value Reference Range Interpretation Comments Influenza antigen (test code = 59933-1) Negative for Influenza A/B antigen. Specimen InformationSpecimen Source: NaresSpecimen Site: Right [place] MethodistCT Angiogram Pe Knmgp1827-14-27 21:10:49Hm Interface, Radiology Results - 01/14/2020 9:13 PM CDTEXAMINATION:CT ANGIOGRAM PE CHESTCLINICAL HISTORY: hx of lung cancer [facility]iseTECHNIQUE:CT angiographic images of the chest were obtained during intravenous administration of iodinated contrast. Computerized reformatted images and 3-D MIP images were also obtained and archived (CT pulmonary embolus protocol). Approximately 60 cc of Visipaque [address] scan performed using radiation dose reduction techniques. Technical factors are evaluated and adjusted to ensure appropriate moderation of exposure. Automated dose management technology is applied to adjust the radiation dose to minimize expose while achieving a diagnostic quality moreno ge.COMPARISON:CT chest 04/25/2018FINDINGS:The main pulmonary artery, right pulmon [place] artery and left pulmonary artery as well as their visualized segmental and s ubsegmental branches demonstrate no evidence of pulmonary embolism. The pulmonar y arteries are normal in caliber.There is no evidence of aortic aneurysm or diss ection.No mediastinum, hilar or axillary pathologic adenopathy is seen.The heart is normal in caliber. No pericardial effusion is seen.Patchy right basilar mosa ic attenuations are seen. There is no evidence of consolidation. No pneumothorax is seen. An approximately 9 mm subpleural nodule within the left lung base has developed in the interim, series 3 image #91. 2 smaller subpleural nodular densi ties within the peripheral aspect of the left lung base, series 3 image #77, als o new. Scattered subpleural nodular densities are also seen along the posterior lateral aspect of the right lung base, series 3 images 79-94. These are new when compared to prior exam. An approximately 5 mm right lower lobe subpleural nodule is stable, series 3 image #71. Approximately 6.4 mm right apical groundglass n odule is also stable. Centrilobular and paraseptal emphysema as prior.. There is no evidence of pneumothorax. No pulmonary nodule or mass is present.Bilateral l ow-density adrenal nodules, right greater than left, as prior. The image portion of the abdomen viscera is otherwise unremarkable.IMPRESSION:No CTA evidence of pulmonary embolism.No CTA evidence of aortic aneurysm or dissection.Nonspecific patchy right basilar mosaic attenuations, suggesting of small airway disease or small vessel disease.No CT evidence of pneumonia.Indeterminate approximately 9 m m left basilar pulmonary nodule and patchy bibasilar pulmonary nodular densities developed in the interim. Recommend clinical correlation and short-term follow- up with CT chest in 3-4 months to document stability/resolution.Additional chron ic findings as prior.[facility]-[id number] MethodistGroup A strep, rapid wzyoytg1303-86-11 20:40:55* Test Item Value Reference Range Interpretation Comments Group A strep, rapid antigen result (test code = 09231 79) Negative for Group A Streptococcus antigen. Specimen Informat ionSpecimen Source: ThroatSpecimen Site: Not otherwise specified [place] MethodistXR Chest 1 [id number] 18:23:36Hm Interface, Radiology Results - 01/14/2020 6:26 PM CDTEXAMINATION: XR CHEST 1 VWCLINICAL HISTORY: hx of left lung malignancy cough SOB subjective feversCOMPARISON: 06/24/2017FINDINGS:One view of the chest demonstrates normal cardiomediastinal silhouette. Pulmonary vasculature is within normal limits.No consolidation or pleural effusion is seen. There is no evidence of pneumothorax.Regional osseous structures is unremarkable.IMPRESSION:No radiographic evidence of acute cardiopulmonary process or active disease of the chest.[facility]-[id number] MethodistCT ABDOMEN/PELVIS [id number] 19:04:00 [place] [address] Patient Name: DESIRE CARRION MR #: [id number] : 1960 Age/Sex: 57/F Req #: [id number] [facility] Physician: Ordered by: ADIA CLIFFORD MD Report #: [id number] Location: ER Room/Bed: Procedure: [id number] CT/CT ABDOMEN/PELVIS W Exam Date: 04/09/18 Exam Time: 1805 REPORT STATUS: S igned EXAMINATION: CT of the abdomen and pelvis with contrast. TECHNIQUE : Spiral CT images of the abdomen and pelvis were performed from the lung bas es to the lesser trochanters after the intravenous administration of 100 cc of Isovue 300 and the oral administration of water. Coronal and sagittal refo rmatted images were obtained. COMPARISON: CT abdomen and pelvis 01/18/2016 CLINICAL HISTORY:Epigastric pain, nausea and vomiting for 4 days DI SCUSSION: ABDOMEN/PELVIS: LOWER THORAX:Stable bilateral emphysematous changes. 6 mm subpleural pulmonary nodule in the right lower lobe (series 2, i mage 4). Mild bilateral lower lobe dependent atelectasis. Linear subsegmental atelectasis versus scarring in the right middle lobe HEPATOBILIARY: Diffu sely decreased attenuation of the hepatic parenchyma compared to the spleen, c onsistent with steatosis. No focal lesions. No intra or extrahepatic biliary ductal dilation. GALLBLADDER: No radio-opaque stones or sludge. No wall th ickening. SPLEEN: No splenomegaly. PANCREAS: No focal masses or ductal dilatation. ADRENALS: Stable 4.1 x 2.4 cm right and 2.2 x 2.8 cm left low density adrenal masses (series 2, images 26 and 23).. KIDNEYS/URETERS: No hydronephrosis, stones, or solid mass lesions. Stable fluid density 0.9 cm s imple cyst in the anterior right interpolar region (series 2, image 35). Stabl e 1.5 cm fluid density simple cyst in the right interpolar region (series 2, i mage 31). Bilateral extrarenal pelves.. PELVIC ORGANS/BLADDER: Bladder is moderately distended but grossly unremarkable. No wall thickening or focal le sions. Uterus is unremarkable. No adnexal masses. PERITONEUM/RETROPERITON EUM: No free air or fluid. LYMPH NODES: No intra-abdominal, retroperitoneal , pelvic or inguinal lymphadenopathy. VESSELS: Atherosclerotic calcificat ion of the abdominal aorta and iliac vessels. GI TRACT: No bowel dilation or evidence of obstruction. No pericolonic inflammatory changes. Scattered di verticula in the distal descending and sigmoid colon, without diverticulitis. Stomach is unremarkable. BONES AND SOFT TISSUE: No aggressive lytic lesions . Marked facet hypertrophy L4-L5 and L5-S1. Soft tissues are grossly unremarka ble. IMPRESSION: 1. No acute abdominopelvic abnormalities. Es sentially unremarkable appearance of the bowel. 2. Diffuse hepatic steato sis. No focal lesions. 3. Stable bilateral adrenal low density masses, whic h may represent adenomas. CT abdomen with adrenal mass protocol is recommended on a nonemergent basis. 4. Stable emphysematous changes. 6 mm subpleural p ulmonary nodule in the right lower lobe. Recommend follow-up chest CT in 12 mo nths to document stability. . Signed by: Dr. Alessandro Duval M.D. o ashish 04/09/2018 7:15 PM Dictated By: ALESSANDRO DUVAL MD 14 Transcribed By: HOMRA on 04/09/181914 COPY TO: ADIA CLIFFORD MD CHEST 2 [id number] 19:01:00 [place] [address] Patient Name: DESIRE CARRION MR #: [id number] : 0 1960 Age/Sex: 57/F Req #: [id number] Adm Physician: Ordered by: ADIA CLIFFORD MD Report #: [id number] Location: ER Room/Be d: Procedure: [id number] DX/CHEST 2 VIEWS Exam Date: 04/09/18 Exam Time: 1816 REPORT STATUS: Signed EXAMINATION: PA and lateral views of the chest. COMPARISON: Portable chest 07/18/2012 CLINICAL HISTORY: Chest pain DISCUSSION: Beti radha/tubes: None. Lungs: The lungs are well inflated and grossly clear. Th ere is no evidence of consolidation or pulmonary edema. Pleura: There is no pleural effusion or pneumothorax. Heart and mediastinum: Cardiomediast inal silhouette is unremarkable. Pulmonary vasculature is normal. Bone s and soft tissues: No acute bony abnormalities. IMPRESSION: No acute cardiopulmonary abnormalities. Signed by: Dr. Alessandro lee M.D. on 04/09/2018 7:04 PM Dictated By: ALESSANDRO DUVAL MD Electronical ly Signed By: ALESSANDRO DUVAL MD on 04/09/181903 Transcribed By: HOMAR on 1903 COPY TO: ADIA CLIFFORD MD Creatine Kinase MB 2018-04-09 17:01:00* Test Item Value Reference Range Interpretation Comments Creatine Kinase MB (test code = 77546-7) 1.50 0-5.0 [facility] CenterTroponin [id number] 17:01:00* Test Item Value Reference Range Interpretation Comments Troponin I (test code = TCM0677) -0.001 0-0.300 [facility] Tylerodium Lxeju5224-88-77 16:53:00* Test Item Value Reference Range Interpretation Comments Sodium Level (test code = 2951-2) 137 136-145 [facility] CenterPotassium Irprz3943-24-45 16:53:00* Test Item Value Reference Range Interpretation Comments Potassium Level (test code = 2823-3) 4.2 3.5-5.1 [facility] CenterChloride Xiuoh5454-77-92 16:53:00* Test Item Value Reference Range Interpretation Comments Chloride Level (test code = 2075-0) 97 98-107 L [facility] CenterCarbon Dioxide Htfpp9329-78-94 16:53:00* Test Item Value Reference Range Interpretation Comments Carbon Dioxide Level (test code = 2028-9) 23 - [facility] CenterAnion Fiz8688-09-44 16:53:00* Test Item Value Reference Range Interpretation Comments Anion Gap (test code = 94952-3) 21.2 8-16 H [facility] CenterBlood Urea Nniushfb6454-72-07 16:53:00* Test Item Value Reference Range Interpretation Comments Blood Urea Nitrogen (test code = 3094-0) 12 05-09 [facility] CenterCreatinine2018-06-26 16:53:00* Test Item Value Reference Range Interpretation Comments Creatinine (test code = 2160-0) 0.89 0.57-1.11 [facility] CenterBUN/Creatinine Qwape8185-61-17 16:53:00* Test Item Value Reference Range Interpretation Comments BUN/Creatinine Ratio (test code = 3097-3) 13 04-08 [facility] CenterEstimat Glomerular Filtration Rate 2018-04-09 16:53:00* Test Item Value Reference Range Interpretation Comments Estimat Glomerular Filtration Rate (test code = 27832-2) 60- >60 Ranges were taken from the National Kidney Disease Education Program and the [facility] Kidney Foundation literature.Reference ranges:60 or greater: Fooebc65-29 ( for 3 consecutive months): Chronic kidney disease 15 or less: Kidney failureCarrollton Regional Medical CenterGlucose Jojyk2014-77-49 16:53:00* Test Item Value Reference Range Interpretation Comments Glucose Level (test code = SIY4503) 110 74-118 [facility] CenterCalcium Wlxwb9814-16-23 16:53:00* Test Item Value Reference Range Interpretation Comments Calcium Level (test code = 87049-7) 10.3 8.4-10.2 H [facility] CenterMagnesium Oznws2220-25-73 16:53:00* Test Item Value Reference Range Interpretation Comments Magnesium Level (test code = 66937-8) 2.0 1.3-2.1 [facility] CenterTotal Xtaihfnej1742-43-86 16:53:00* Test Item Value Reference Range Interpretation Comments Total Bilirubin (test code = 1975-2) 1.2 0.2-1.2 [facility] CenterAspartate Amino Transf (AST/SGOT) 2018-04-09 16:53:00* Test Item Value Reference Range Interpretation Comments Aspartate Amino Transf (AST/SGOT) (test code = Aspartate Amino Transf (AST/SGOT)) 59 5-34 H [facility] CenterAlanine Aminotransferase (ALT/SGPT) 2018-04-09 16:53:00* Test Item Value Reference Range Interpretation Comments Alanine Aminotransferase (ALT/SGPT) (test code = 1742-6) 51 0-55 [facility] CenterTotal Wsesfax2277-58-19 16:53:00* Test Item Value Reference Range Interpretation Comments Total Protein (test code = 2885-2) 9.0 6.5-8.1 H [facility] CenterAlbumin2018-06-26 16:53:00* Test Item Value Reference Range Interpretation Comments Albumin (test code = 1751-7) 4.6 3.5-5.0 [facility] CenterGlobulin2018-06-26 16:53:00* Test Item Value Reference Range Interpretation Comments Globulin (test code = 56358-6) 4.4 2.3-3.5 H [facility] CenterAlbumin/Globulin Rwtus1678-37-88 16:53:00 * Test Item Value Reference Range Interpretation Comments Albumin/Globulin Ratio (test code = 1759-0) 1.0 0.8-2.0 [facility] CenterAlkaline Fbxbqlhqvki3113-86-20 16:53:00* Test Item Value Reference Range Interpretation Comments Alkaline Phosphatase (test code = 6768-6) 94 40-150 [facility] CenterCreatine Fdvrup0734-92-20 16:53:00* Test Item Value Reference Range Interpretation Comments Creatine Kinase (test code = 2157-6) 103 29-168 [facility] CenterAmylase Ivhjq2744-71-85 16:53:00* Test Item Value Reference Range Interpretation Comments Amylase Level (test code = 1798-8) 64 25-125 [facility] CenterLipase2018-06-26 16:53:00* Test Item Value Reference Range Interpretation Comments Lipase (test code = 3040-3) 32 8-78 [facility] CenterProthrombin Qkni3617-51-72 16:46:00* Test Item Value Reference Range Interpretation Comments Prothrombin Time (test code = 5902-2) 12.2 11.9-14.5 [facility] CenterProthromb Time International Ratio 2018-04-09 16:46:00* Test Item Value Reference Range Interpretation Comments Prothromb Time International Ratio (test code = 6301-6) 0.98 Oral Anticoagulant Therapy INR Values:1. Low Intensity Therapy 1.5 - 2.02 . Moderate Intensity Therapy 2.0 - 3.03. High Intensity Therapy(1) 2.5 - 3. 54. High Intensity Therapy(2) 3.0 - 4.05. Panic Value INR > 5.0 [facility] CenterActivated Partial Thromboplast Time 2018-04-09 16:46:00* Test Item Value Reference Range Interpretation Comments Activated Partial Thromboplast Time (test code = 76037-4) 27.7 23.8-35.5 [facility] CenterWhite Blood Utaed6370-63-79 16:40:00* Test Item Value Reference Range Interpretation Comments White Blood Count (test code = 6690-2) 9.25 4.8-10.8 [facility] CenterRed Blood Gqrca0043-20-26 16:40:00* Test Item Value Reference Range Interpretation Comments Red Blood Count (test code = 789-8) 4.82 3.6-5.1 [facility] CenterHemoglobin2018-06-26 16:40:00* Test Item Value Reference Range Interpretation Comments Hemoglobin (test code = 86917-9) 16.7 12.0-16.0 H [facility] CenterHematocrit2018-06-26 16:40:00* Test Item Value Reference Range Interpretation Comments Hematocrit (test code = 4544-3) 46.5 34.2-44.1 H [facility] CenterMean Corpuscular Hijnaq1107-54-50 16:40:00* Test Item Value Reference Range Interpretation Comments Mean Corpuscular Volume (test code = 787-2) 96.5 81-99 [facility] CenterMean Corpuscular Jjgdjqtlpa4506-85-95 16:40:00* Test Item Value Reference Range Interpretation Comments Mean Corpuscular Hemoglobin (test code = 785-6) 34.6 28-32 H [facility] CenterMean Corpuscular Hemoglobin Concent 2018-04-09 16:40:00* Test Item Value Reference Range Interpretation Comments Mean Corpuscular Hemoglobin Concent (test code = 786-4) 35.9 31-35 H [facility] CenterRed Cell Distribution Nctzb3565-08-01 16:40:00* Test Item Value Reference Range Interpretation Comments Red Cell Distribution Width (test code = 47067-5) 13.5 11.7 -14.4 [facility] CenterPlatelet Pfwal1740-62-99 16:40:00* Test Item Value Reference Range Interpretation Comments Platelet Count (test code = 777-3) 369 140-360 H [facility] CenterNeutrophils (%) (Auto)2018-04-09 16:40:00 * Test Item Value Reference Range Interpretation Comments Neutrophils (%) (Auto) (test code = 09675-1) 53.7 38.7-80.0 [facility] CenterLymphocytes (%) (Auto)2018-04-09 16:40:00 * Test Item Value Reference Range Interpretation Comments Lymphocytes (%) (Auto) (test code = 736-9) 33.7 18.0-39.1 [facility] CenterMonocytes (%) (Auto)2018-04-09 16:40:00* Test Item Value Reference Range Interpretation Comments Monocytes (%) (Auto) (test code = 5905-5) 11.4 4.4-11.3 H [facility] CenterEosinophils (%) (Auto)2018-04-09 16:40:00 * Test Item Value Reference Range Interpretation Comments Eosinophils (%) (Auto) (test code = 713-8) 0.6 0.0-6.0 [facility] CenterBasophils (%) (Auto)2018-04-09 16:40:00* Test Item Value Reference Range Interpretation Comments Basophils (%) (Auto) (test code = 706-2) 0.3 0.0-1.0 [facility] CenterIM GRANULOCYTES %2018-04-09 16:40:00* Test Item Value Reference Range Interpretation Comments IM GRANULOCYTES % (test code = IM GRANULOCYTES %) 0.3 0.0- 1.0 [facility] CenterNeutrophils # (Auto)2018-04-09 16:40:00* Test Item Value Reference Range Interpretation Comments Neutrophils # (Auto) (test code = 751-8) 5.0 2.1-6.9 [facility] CenterLymphocytes # (Auto)2018-04-09 16:40:00* Test Item Value Reference Range Interpretation Comments Lymphocytes # (Auto) (test code = 19355-3) 3.1 1.0-3.2 [facility] CenterMonocytes # (Auto)2018-04-09 16:40:00* Test Item Value Reference Range Interpretation Comments Monocytes # (Auto) (test code = 742-7) 1.1 0.2-0.8 H [facility] CenterEosinophils # (Auto)2018-04-09 16:40:00* Test Item Value Reference Range Interpretation Comments Eosinophils # (Auto) (test code = 711-2) 0.1 0.0-0.4 [facility] CenterBasophils # (Auto)2018-04-09 16:40:00* Test Item Value Reference Range Interpretation Comments Basophils # (Auto) (test code = 704-7) 0.0 0.0-0.1 [facility] CenterAbsolute Immature Granulocyte (auto 2018-04-09 16:40:00* Test Item Value Reference Range Interpretation Comments Absolute Immature Granulocyte (auto (keyla t code = Absolute Immature Granulocyte (auto) 0.03 0-0.1 [facility]
--- NOTE | 2020-05-18 13:23 | Emergency Department Note ---
History of Present Illnes History of Present Illness Chief Complaint: General Medicine Complaints History of Present Illness This is a 59 year old female c/o right shoulder pain x 1 month states it keeps popping went to urgent care last week and told she has arthritis and needs to follow up with ortho but has not still c/o right shoulder pain and popping states she was give tylenol #3 with no relief so she stopped taking it denies trauma thought she may have just slept bad on it but pain has continued for a month. Historian: Patient Arrival Mode: Car Past Medical/Family History Physician Review I have reviewed the patient's past medical and family history. Any updates have been documented here. 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 left lung ca Other Surgery: X 2 , TONSILLECTOMY, BREAST BIOPSY lung lung resection Social History Smoking Cessation: Current every day smoker Counseling Performed: No Alcohol Use: None Any Illegal Drug Use: No Physically hurt or threatened: No Other Last Tetanus: UTD Any Pre-Existing Lines (PICC,: No Review of Systems Review of Systems Constitutional: Denies no symptoms, Denies as per HPI, Denies chills, Denies diaphoresis, Denies fever, Denies malaise, Denies weakness, Denies other EENTM: Denies no symptoms, Denies as per HPI, Denies eye pain, Denies blurred vision, Denies tearing, Denies double vision, Denies ear pain, Denies ear discharge, Denies nose pain, Denies nose congestion, Denies throat pain, Denies throat swelling, Denies mouth pain, Denies mouth swelling, Denies other Cardiovascular: Denies no symptoms, Denies as per HPI, Denies chest pain, Denies edema, Denies palpitations, Denies syncope, Denies other Respiratory: Denies no symptoms, Denies as per HPI, Denies change in phlegm color, Denies chest congestion, Denies cough, Denies hemoptysis, Denies excessive phlegm production, Denies pain on inspiration, Denies pain with cough, Denies dyspnea, Denies dyspnea on exertion, Denies snoring, Denies stridor, Denies wheezing, Denies other Gastrointestinal: Denies no symptoms, Denies as per HPI, Denies abdominal pain, Denies constipation, Denies diarrhea, Denies nausea, Denies vomiting, Denies other Musculoskeletal: Reports joint pain (R shoulder) Integumentary: Denies no symptoms, Denies as per HPI, Denies change in color, Denies change in hair/nails, Denies dryness, Denies lesions, Denies lumps, Denies rash, Denies poor turgor, Denies ecchymosis, Denies other Psychological: Denies no symptoms, Denies as per HPI, Denies anxiety, Denies depressed, Denies emotional problems, Denies other Endocrine: Denies no symptoms, Denies as per HPI, Denies excessive sweating, Denies flushing, Denies intolerance to cold, Denies intolerance to heat, Denies increased hunger, Denies increased thirst, Denies increased urination, Denies unexplained weight gain, Denies unexplained weight loss, Denies other Hematological/Lymphatic: Denies no symptoms, Denies as per HPI, Denies anemia, Denies blood clots, Denies easy bleeding, Denies easy bruising, Denies swollen glands, Denies other Physical Exam Related Data Allergies: Uncoded Allergies: PENICILLIN (Allergy, Severe, 07/18/12) Triage Vital Signs Vital Signs Date Time Temp Pulse Resp B/P (MAP) Pulse Ox O2 Delivery O2 Flow Rate FiO2 05/18/20 12:43 98.2 97 18 125/74 100 Room Air Physical Exam CONSTITUTIONAL Constitutional: Present well-developed, Present well-nourished HENT HENT: Present normocephalic, Present atraumatic, Present oropharynx clear/moist, Present nose normal HENT L/R: Present left ext ear normal, Present right ext ear normal EYES Eyes: Reports PERRL, Reports conjunctivae normal NECK Neck: Present ROM normal PULMONARY Pulmonary: Present effort normal, Present breath sounds normal CARDIOVASCULAR Cardiovascular: Present regular rhythm, Present heart sounds normal, Present capillary refill normal, Present normal rate GASTROINTESTINAL Abdominal: Present soft, Present nontender, Present bowel sounds normal GENITOURINARY Genitourinary: Present exam deferred SKIN Skin: Present warm, Present dry MUSCULOSKELETAL Musculoskeletal: Present ROM normal, Present other (Shoulder ROM intact. No significant tenderness. R arm neurovascularly intact) NEUROLOGICAL Neurological: Present alert, Present oriented x 3, Present no gross motor or sensory deficits PSYCHOLOGICAL Psychological: Present mood/affect normal, Present judgement normal Procedures 12 Lead ECG Interpretation ECG Interpretation : Awnings Mechanic: Interpreted by ED physician Date: May 18, 2020 Rhythm: sinus rhythm Rate: normal QRS axis: normal ST segments normal: Yes T waves normal: Yes Clinical Impression: normal ECG Assessment & Plan Medical Decision Making MDM 59 y.o F w/ chronic R shoulder pain. She has been seen for this multiple times and tried multiple medications. She has Ortho appt scheduled already. No signs of neurovascular compromise on exam. Differential includes arthritis, rotator cuff injury, frozen shoulder. She has had a w/u for this in the past. EKG well appearing. She will f/u w/ Ortho and take ibuprofen, tylenol and or her T3 for pain. patient states agreement to plan and is appropriate for DC. Assessment & Plan Final Impression: (1) Shoulder pain Depart Disposition: HOME, SELF-CARE Last Vital Signs Date Time Temp Pulse Resp B/P (MAP) Pulse Ox O2 Delivery O2 Flow Rate FiO2 05/18/20 12:43 98.2 97 18 125/74 100 Room Air Home Meds Reported Medications Dicyclomine Hcl (BENTYL) 10 Mg Capsule, 20 MG PO Q6H PRN for ABDOMINAL PAIN, CAP //16 Ondansetron (ZOFRAN ODT) 4 Mg Tab.rapdis, 4 MG Q6H PRN for NAUSEA, TAB /5/16 Pantoprazole Sodium* (PROTONIX) 40 Mg Tablet.dr, 40 MG PO DAILY, TAB /16 RADHA HIGGINS MD May 18, 2020 13:23
== END 2020-05-18 13:30 | disposition home or self-care (01) ==
LOC: ER 12:45
DX: M25.511 Pain in right shoulder (principal); I10 Essential (primary) hypertension; E78.5 Hyperlipidemia, unspecified; F32.9 Major depressive disorder, single episode, unspecified; Z85.118 Personal history of other malignant neoplasm of bronchus and lung; F17.210 Nicotine dependence, cigarettes, uncomplicated
CPT/HCPCS: 93005; 99282

== ENCOUNTER 2020-07-12 09:16 | Emergency (ER) | payer BC, OTHER ==
[~2020-07-12] VITALS: Ht 170.2 cm; Wt 59.0 kg
--- OUTSIDE RECORDS SUMMARY | 2020-07-12 09:32 | XMS REPORT | Continuity of Care Document ---
Author Author [facility] t Organization [facility] Address [address] [place] [address] Phone Unavailable Care Team Providers Care Branch Rental Manager Name Role Phone MD Devang VELAZQUEZ MD PCP Fazal Menjivar MD, Akil Cano Attphys Vinnie HERRERA, P. Aristeo Attphys Sindy HERRERA, Formerly [facility] Aristeo Attphys Ramon HERRERA, Donovan Escobar Attphys [phone] Sandro HERRERA, Zachary Mena Attphys [phone] CAROLINE MARTIN Attphys Unavailable Ramírez CLIFFORD Attphys Unavailable ARISTEO GRIFFIN Admphys Unavailable Payers Payer Name Policy Type Policy Number Effective Date Expiration Date Devang Greene Pos [id number] 2012 00:00:00 [facility] [facility]FEDERAL EMPL [id number] 2019-P resentPPO [id number] 2019 00:00:00 Arnold Celestin Problems Condition Name Condition Details Condition Category [...] without hematuria Disease Active 2017-05-10 00:00:00 Josh holguinpolo Druze Generalized abdominal pain Generalized abdominal pain Disease Active 2017-05-10 00:00:00 Overview: Added automaticall y from request for surgery [id number] Arnold Celestin Problem Condition Active [facility] Allergies, Adverse Reactions, Alerts Allergy Name Allergy Type Status Severity Reaction(s) Onset Date Inacti ve Date Treating Clinician Comments Source Penicillins Propensity to adverse reactions to drug Active Anaphylaxis 2017-05-10 00:00:00 Patient has tolerated ceftri axone without reaction Arnold Celestin PENICILLIN Allergy to substance Active Severe 2012-07-18 00:00:00 [facility] Family History Family Member Diagnosis Comments Start Date Stop Date Source Natural father Heart disease Arnold Celestin Natural mother Cancer [facility] Natural mother Diabetes [place] [facility] Natural mother Heart disease Arnold Celestin Social History Social Habit Start Date Stop Date Quantity Comments Source History of tobacco use Cigarette Smoker Arnold Celestin Sex Assigned At Jennifer Celestin Cigarettes smoked current (pack per day) - Reported 00:00:00 2020-03-01 00:00:00 Arnold Celestin Cigarette pack-years 2020-03-01 00:00:00 2020-03-01 00:00:00 Arnold Celestin Tobacco use and exposure 2020-03-01 00:00:00 2020-03-01 00:00:00 Lorna r used Arnold Celestin Alcohol intake 2020-03-01 00:00:00 2020-03-01 [...] 12 (twelve) hours for 5 days. Arnold Reed dist sulfamethoxazole-trimethoprim (BACTRIM DS) 800-160 mg per ta blet 2020-03-02 00:00:00 2020-03-02 00:00:00 No 1{tbl} Q.5D Take 1 tablet by mouth every 12 (twelve) hours for 5 days. Arnold Methjuan dist Dicyclomine Hcl (Bentyl) 10 Mg CAPSULE Dicyclomine Hcl (Bentyl) 10 Mg CAPSULE Yes 20 Every 6 Hours as needed for Abdo chong Pain [facility] Ondansetron (Zofran Odt) 4 Mg TAB.RAPDIS Ondansetron ( Zofran Odt) 4 Mg TAB.RAPDIS Yes 4 Every 6 Hours as needed for Nausea [facility] Pantoprazole Sodium (Protonix) 40 Mg TABLET. Pantopr azole Sodium (Protonix) 40 Mg TABLET.DR Parrish 40 Daily [facility] Vital Signs Vital Name Observation Time Observation Value Comments Source Weight 2020-05-18 12:43:00 130 [lb_av] [facility] BMI (Body Mass Index) 2020-05-18 12:43:00 20.4 kg/m2 [facility] Systolic blood pressure 2020-03-02 15:24:19 150 mm[Hg] Arnold Celestin Diastolic blood pressure 2020-03-02 15:24:19 85 mm[Hg] Arnold Celestin Heart rate 2020-03-02 15:24:19 75 /min Arnold Celestin Body temperature 2020-03-02 15:24: 36.22 Jocelin J Luis polo Druze Respiratory rate 2020-03-02 15:24:19 19 /min J Luis Celestin Oxygen saturation in Arterial blood by Pulse oximetry 03-02 15:24:19 96 /min Arnold Celestin Body height 2020-03-01 17:45:00 167.6 cm Arnold Celestin Body weight 2020-03-01 16:10:00 59 kg Arnold Celestin BMI 2020-03-01 16:10:00 20.99 kg/m2 Arnold Celestin Procedures Procedure Date / Time Performed Performing Clinician Sourc e US GALLBLADDER 2020-03-02 09:34:34 Aristeo Griffin COMPREHENSIVE METABOLIC PANEL 2020-03-02 05:05:00 Aristeo Griffin HC COMPLETE BLD COUNT W/AUTO DIFF 2020-03-02 05:05:00 Iker Griffin ESTIMATED GFR 2020-03-02 05:05:00 Aristeo Griffin ethodi LACTIC ACID LEVEL, SEPSIS - NOW AND REPEAT 2X EVERY 3 HOURS 2020-03-01 17:00:00 Aristeo Birmingham TROPONIN 2020-03-01 17:00:00 Aristeo Birmingham BLOOD CULTURE, AEROBIC & ANAEROBIC 2020-03-01 14:44:00 Iker Birmingham BLOOD CULTURE, AEROBIC & ANAEROBIC 2020-03-01 14:40:00 Iker Birmingham LACTIC ACID LEVEL, SEPSIS - NOW AND REPEAT 2X EVERY 3 HOURS 2020-03-01 14:34:00 Aristeo Birminghamist TROPONIN 2020-03-01 14:34:00 Aristeo Birmingham Met hodist LIPASE LEVEL 2020-03-01 14:34:00 Aristeo Griffin M ethodist CT CHEST W CONTRAST ABDOMEN W CONTRAST PELVIS W CONTRAST 202 13:14:18 Aristeo Birminghamist ECG 12-LEAD 2020-03-01 11:11:21 Aristeo Birmingham Met hodist URINE CULTURE 2020-03-01 11:04:00 Aristeo Birmingham Met hodist URINALYSIS SCREEN AND MICROSCOPY, WITH REFLEX TO CULTURE 10:50:00 Aristeo Birmingham ECG ED PRELIMINARY INTERPRETATION 2020-03-01 10:49:07 Brian Birminghamist HC COMPLETE BLD COUNT W/AUTO DIFF 2020-03-01 10:43:00 Brian Birmingham BASIC METABOLIC PANEL 2020-03-01 10:43:00 Aristeo Birmingham on Druze HEPATIC FUNCTION PANEL 2020-03-01 10:43:00 Aristeo Birmingham Druze LACTIC ACID LEVEL, SEPSIS - NOW AND REPEAT 2X EVERY 3 HOURS 2020-03-01 10:43:00 Aristeo Birmingham ESTIMATED GFR 2020-03-01 10:43:00 Aristeo Birmingham Met hodist TROPONIN 2020-03-01 10:43:00 Aristeo Birmingham Met hodist B NATRIURETIC PEPTIDE 2020-03-01 10:43:00 Aristeo Birmingham on Druze CREATINE KINASE, TOTAL (CPK) 2020-03-01 10:43:[address] ANGIOGRAM PE CHEST 2020-01-14 20:41:05 Michelle Jo Druze TROPONIN 2020-01-14 19:41:00 Michelle Jo on Druze XR CHEST 1 VW 2020-01-14 18:13:14 Michelle Jo on Druze HC COMPLETE BLD COUNT W/AUTO DIFF 2020-01-14 17:40:00 Dominique Jo se Druze COMPREHENSIVE METABOLIC PANEL 2020-01-14 17:40:00 Michelle Jo TROPONIN 2020-01-14 17:40:00 Michelle Jo on Druze B NATRIURETIC PEPTIDE 2020-01-14 17:40:00 Michelle Jo ESTIMATED GFR 2020-01-14 17:40:00 Michelle Jo on Druze INFLUENZA ANTIGEN TEST, REFLEX NEGATIVE TO RPP 2020-01-14 17 :18:00 Michelle Jo GROUP A STREP, RAPID ANTIGEN 2020-01-14 17:17:00 Michelle Jo STREP SCREEN CULTURE 2020-01-14 17:17:00 Michelle Jo COVID BIOREF (NCOVB) 2020-01-14 17:17:00 Michelle Jo RESPIRATORY PATHOGEN PANEL 2020-01-14 17:15:00 Michelle Joist ECG ED PRELIMINARY INTERPRETATION 2020-01-14 17:12:50 Dominique Jo seist ECG 12-LEAD 2020-01-14 16:56:45 Michelle Jo on Druze MAMMO BREAST DIAGNOSTIC TOMOSYNTHESIS BILATERAL 2019-08-21 0 9:14:00 System, Provider Not In [facility] Plan of Care Planned Activity Planned Date Details Comments Source Future Scheduled Test 2021-08-21 00:00:00 BREAST CANCER SCRE ENING [code = BREAST CANCER SCREENING] [facility] Future Scheduled Test 2020-05-15 00:00:00 INFLUENZA VACCINE [code = INFLUENZA VACCINE] [facility] Future Scheduled Test 2011 00:00:00 COLONOSCOPY SCREEN ING [code = COLONOSCOPY SCREENING] [facility] Future Scheduled Test 2011 00:00:00 SHINGLES VACCINES (#1) [code = SHINGLES VACCINES (#1)] [facility] Future Scheduled Test 1982 00:00:00 Screening for mu gnant neoplasm of cervix (procedure) [code = 576294854] Barrett Methodis t Instructions Shoulder [facility] Encounters Start Date/Time End Date/Time Encounter Type Admission Type Attendi [facility] Care Department Encounter ID Source 2020-05-18 12:45:00 2020-05-18 13:30:00 Departed Emergency Room [facility] [id number] [facility] 2020-03-01 00:00:00 2020-03-02 00:00:00 Outpatient JENNIFER GRIFFIN [facility] [id number] [facility] 2020-01-14 00:00:00 2020-01-14 00:00:00 Emergency MICHELLE JO [facility] [id number] [facility] 2019-08-21 00:00:00 2019-08-21 00:00:00 Outpatient Clara MARTIN CHRIS [facility] [id number] [facility] 2018-04-09 16:08:00 2018-04-09 21:06:00 Departed Emergency Room 1 ADIA CLIFFORD [facility] [id number] [facility] Results Test Description Test Time Test Comments Results Result Comments Source Blood culture, aerobic & anaerobic 2020-03-06 18:03:05 Test Item Blood culture isolate (test code = 600-7) No growth after 5 days of incubation. Specimen InformationSpecimen Source: BloodSpecimen Site: unknown [facility] 12 [id number] 10:05:09* Test Item Value Reference Range Interpretation Comments Ventricular rate (test code = 253) 89 Atrial rate (test code = 255) 89 ME interval (test code = 266) 138 QRSD [...] leads-Electr onically Signed By Aman Herrera MD ([id number]) on 03/02/2020 10:05:08 AM Arnold Patrick Mzvcnkjjomb8733-30-38 09:44:21Hm Interface, Radiology Results 03/02/2020 9:47 AM CDTEXAMINATION: US GALLBLADDERCLINICAL HISTORY: [...] 2. The common bile duct is not dilated.[id number] [facility] insfs1628-60-07 06:04:36* Test Item Value Reference Range Interpretation Comments Sodium (test code = 2951-2) 139 135- 150 mEq/L Potassium (test code = 2823-3) 3.6 3.5- 5.0 mEq/L Chloride (test code = 2075-0) 102 98- 112 mEq/L CO2 (test code = 2027-9) 25 mmol/L 24-31 Anion gap (test code = 61687-2) 12@ANIO 7- 15 mEq/L BUN (test code = 3094-0) 12 mg/dL 7-18 Creatinine (test code = 2160-0) 0.60 mg/dL 0.5-0.9 Glucose (test code = 2345-7) 101 mg/dL 65-100 H Calcium (test code = 89817-8) 9.3 mg/dL 8.3-10.2 Protein (test code = 2885-2) 6.8 g/dL 6.3-8.3 Albumin (test code = 1751-7) 3.2 g/dL 3.5-5 L A/G ratio (test code = 1759-0) 0.9 0.7-3.8 Alkaline phosphatase (test code = 6768-6) 63 U/L 0-104 AST (test code = 1920-8) 33 U/L 10-35 ALT (test code = 1742-6) 48 U/L 5-50 Total bilirubin (test code = 1974-2) 0.4 mg/dL 0.2-1.2 Lab Interpretation (test code = 98936-9) Abnormal Barrett MethodistEstimated [id number] 06:04:35* Test Item Value Reference Range Interpretation Comments Estimated GFR (test code = 5488) >=90 mL/min/1.73 m2 Catergory Units InterpretationG1 >=90 Normal or highG2 60-89 Mildly nipticyhaT9i 45-59 Mildly to moderately lmvycmmlaV9y 30-44 Moderately to severely decreasedG4 15-29 Severely decreasedG5 <15 Kidney failureThe eGFR was calculated using the Chronic Kidney Disease Epidemiology Collaboration (CKD-EPI) equation. Interpretation is based on recommendations of the National Kidney Foundation-Kidney Disease Outcomes Quality Initiative (NKF-KDOQI) published in 2014. [place] MethodistCBC with platelet and bshftrwcsreg5295-42-70 05:37:04* Test Item Value Reference Range Interpretation Comments WBC (test code = 13110-3) 6.4 4.2- 11.0 k/uL RBC (test code = 54449-3) 4.11 m/uL 4.04-5.86 HGB (test code = 718-7) 13.1 g/dL 11.5-15.3 HCT (test code = 4544-3) 40.0 % 34-45 MCV (test code = 787-2) 97.3 fL 80-98 MCH (test code = 785-6) 31.9 pg 27-34 MCHC (test code = 786-4) 32.8 g/dL 31.5-36.5 RDW - SD (test code = 20639-0) 50.0 fL 37-51 MPV (test code = 74191-0) 9.8 fL 7.4-10.4 Platelet count (test code = 13381-3) 159 150- 400 k/uL Nucleated RBC (test code = 20655-5) 0.00 /100 WBC Neutrophils (test code = 78818-5) 44.2 % 36-66 Lymphocytes (test code = 69871-5) 43.8 % 24-44 Monocytes (test code = 66936-6) 11.1 % 0-6 H Eosinophils (test code = 68414-2) 0.5 % 0-6 Basophils (test code = 50686-4) 0.2 % 0-1.2 Immature granulocytes (test code = 60162-7) 0.2 % 0-1 Lab Interpretation (test code = 75012-3) Abnormal [place] CoydlymrpQmfdetjd8975-50-57 17:56:41* Test Item Value Reference Range Interpretation Comments Troponin (test code = 11807-5) <0.006 0-0.04 In patients suspected of having [...] OR decreased by less than 0.020 ng/mL [place] MethodistLactic acid level, SEPSIS - Now and repeat 2x every 3 hours 2020-03-01 17:23:59* Test Item Value Reference Range Interpretation Comments Lactic acid (test code = 04734-7) 1.3 mmol/L 0.5-2.2 [place] MethodistLipase dimea0804-32-74 16:25:49* Test Item Value Reference Range Interpretation Comments Lipase (test code = 3040-3) 18 U/L 13-60 [place] MethodistCT Chest W Contrast Abdomen W Contrast [...] finding is u nchanged from the previous study.[id number] Methodcar[facility] hospitalB natriuretic ygvblrl2149-62-07 11:39:40* Test Item Value Reference Range Interpretation Comments BNP (test code = 28980-5) 18 pg/mL 0-100 [place] MethodistBasic metabolic fknjd7909-17-91 11:34:31* Test Item Value Reference Range Interpretation Comments Sodium (test code = 2951-2) 141 135- 150 mEq/L Potassium (test code = 2823-3) 3.3 3.5- 5.0 mEq/L L Chloride (test code = 2075-0) 101 98- 112 mEq/L CO2 (test code = 2027-9) 24 mmol/L 24-31 Anion gap (test code = 81750-2) 16@ANIO 7- 15 mEq/L H BUN (test code = 3094-0) 16 mg/dL 7-18 Creatinine (test code = 2160-0) 0.60 mg/dL 0.5-0.9 Glucose (test code = 2345-7) 103 mg/dL 65-100 H Calcium (test code = 18166-2) 9.7 mg/dL 8.3-10.2 Lab Interpretation (test code = 02611-8) Abnormal [place] MethodistHepatic function qpotx4643-04-94 11:34:31* Test Item Value Reference Range Interpretation Comments Albumin (test code = 1751-7) 3.7 g/dL 3.5-5 Total bilirubin (test code = 1974-2) 0.6 mg/dL 0.2-1.2 Bilirubin direct (test code = 1967-7) <0.2 0-0.4 Alkaline phosphatase (test code = 6768-6) 74 U/L 0-104 Protein (test code = 2885-2) 7.9 g/dL 6.3-8.3 ALT (test code = 1742-6) 69 U/L 5-50 H AST (test code = 1920-8) 54 U/L 10-35 H Lab Interpretation (test code = 43695-0) Abnormal [place] MethodistCreatine kinase, total (CPK)2020-03-01 11:34:31* Test Item Value Reference Range Interpretation Comments Creatine kinase (test code = 2157-6) 59 U/L 26-192 [place] MethodistUrinalysis screen and microscopy, with reflex to culture 2020-03-01 11:07:43* Test Item Value Reference Range Interpretation Comments Specimen site (test code = 8236521) Clean catch Color, UA (test code = 5778-6) Nithya Appearance, UA (test code = 5767-9) Turbid Specific gravity, UA (test code = 5811-5) 1.027 1.001-1.035 pH, UA (test code = 5803-2) 8.0 5.0-8.5 Protein, UA (test code = 68451-2) 2+ Negative A Glucose, UA (test code = 94417-0) Negative Negative Ketones, UA (test code = 2514-8) Trace Negative A Bilirubin, UA (test code = 5770-3) Negative Negative Blood, UA (test code = 5794-3) Small Negative A Nitrite, UA (test code = 5802-4) Positive Negative A Urobilinogen, UA (test code = 75202-8) Negative <2.0 Leukocyte esterase, UA (test code = 5799-2) Large Negative A Epithelial cells, UA (test code = 5787-7) Many /HPF WBC, UA (test code = 5821-4) >200 0- 5 /HPF H RBC, UA (test code = 01930-1) 21 0- 5 /HPF H Bacteria, UA (test code = 30798-9) Many None seen A Yeast, UA (test code = 57944-2) None seen Yeast with pseudohyphae, UA (test code = 45914-9) None seen Triple phosphate crystals, UA (test code = 5814-9) Few Lab Interpretation (test code = 45014-0) Abnormal [place] [facility] Preliminary Interpretation - Not an Swzlg4662-45-31 10:49:07Aristeo Birmingham MD 03/01/2020 2:32 [facility] Preliminary Interpretation - Not an OrderPerformed by: Aristeo Birmingham MDAuthorized by: Aristeo Birmingham MD ECG reviewed by ED Physician in the absence of a cryptologic technician operator/analyst: yes Interpretation: Interpretation: normal Rate: ECG rate: 89 ECG rate assessment: normal Rhythm: Rhythm: sinus rhythm QRS: QRS axis: Normal QRS intervals: NormalConduction: Conduction: normal ST segments: ST segments: NormalT waves: T waves: normal [facility] Respiratory pathogen kiyjt6297-88-75 11:41:08Respiratory pathogen panelNegative for all pathogens tested:Negative for AdenovirusNegative for Coronavirus SPA5Lyhayulb for Coronavirus RA99Kxewvnyq for Coronavirus 229ENegative for Coronavirus LW94Xfprxggg for Human MetapneumovirusNegative for Rhinovirus/EnterovirusNegative for Influenza ANegative for Influenza A/H1N egative for Influenza A/H4Hpchxxxy for Influenza A/H1-2009Negative for Influenza BNegative for [...] the assay . Comment: Specimen InformationSpecimen Source: [facility] Site: Right [place] [facility] MethodistCOVID BioRef (NCOVB)2020-01-20 11:09:46* Test Item Value Reference Range Interpretation Comments COVCRISTAL BioRef (NCOVB) (test code = 41860-6) Not Detected Not Detecte d Testing performed at [facility] [address] [place] [address] NOTE: The COVID-19 assay has been cleared by the U.S. Food and Drug Administration under the Emergency Use Authorization (EUA). [facility] is designated as a high complexity laboratory by the Clinical Laboratory Improvement Amendments of 1988(CLIA) and is qualified to perform this test. ASSAY INFORMATION: Real Time RT-PCR NOTE: Please consider re- collection of a new specimen, if clinically indicated. Arnold [facility] screen qyytuur2957-85-73 21:03:48* Test Item Value Reference Range Interpretation Comments Strep screen culture isolate (test code = 2246) No bet a hemolytic Streptococci isolated Specimen Information Specimen Source: ThroatSpecimen Site: Not otherwise specified [facility] HospitalistInfluenza antigen test, reflex negative to [id number] 22:16:00* Test Item Value Reference Range Interpretation Comments Influenza antigen (test code = 92782-5) Negative for Influenza A/B antigen. Specimen InformationSpecimen Source: NaresSpecimen Site: Right [facility] Pe Qlpqs0055-74-20 21:10:49Hm Interface, Radiology Results 01/14/2020 9:13 PM CDTEXAMINATION:CT ANGIOGRAM PE CHESTCLINICAL HISTORY: hx of lung cancer [facility]:CT angiographic images of the chest were obtained [...] to document stability/resolution.Additional chron ic findings as prior.[id number] MethodistGroup A strep, rapid jmcfnqi0250-02-17 20:40:55* Test Item Value Reference Range Interpretation Comments Group A strep, rapid antigen result (test code = 01549 79) Negative for Group A Streptococcus antigen. Specimen Informat ionSpecimen Source: ThroatSpecimen Site: Not otherwise specified [place] MethodistXR Chest 1 [id number] 18:23:36Hm Interface, Radiology Results Incoming - 01/14/2020 6:26 PM CDTEXAMINATION: XR CHEST 1 VWCLINICAL HISTORY: hx of left lung malignancy cough SOB subjective feversCOMPARISON: 06/24/2017FINDINGS:One view of the chest demonstrates normal cardiomediastinal silhouette. Pulmonary vasculature is within normal limits.No consolidation or pleural effusion is seen. There is no evidence of pneumothorax.Regional osseous structures is unremarkable.IMPRESSION:No radiographic evidence of acute cardiopulmonary process or active disease of the chest.[id number] MethodistCT ABDOMEN/PELVIS [id number] 19:04:00 [place] [address] Patient Name: DESIRE CARRION MR #: [id number] : 1960 Age/Sex: 57/F Req #: [id number] Adm Physician: Ordered by: ADIA CLIFFORD MD Report #: [id number] Location: ER Room/Bed: Procedure: [id number] CT/CT ABDOMEN/PELVIS W Exam Date: 04/09/18 Exam [...] Signed by: Dr. Alessandro Duval M.D. o n 04/09/2018 7:15 PM Dictated By: ALESSANDRO DUVAL MD 14 Transcribed By: HOMAR on 04/09/181914 COPY TO: ADIA CLIFFORD MD CHEST 2 OQFWC1035-69-80 19:01:00 [facility] [address] [place] [address] Patient Name: DESIRE CARRION MR #: [id number] : 0 1960 Age/Sex: 57/F Req #: [id number] Adm Physician: Ordered by: ADIA CLIFFORD MD Report #: [id number] Location: ER Room/Be d: Procedure: [id number] DX/CHEST 2 VIEWS Exam Date: 04/09/18 Exam Time: 1815 REPORT STATUS: Signed EXAMINATION: PA and lateral views of the chest. COMPARISON: Portable chest 07/18/2012 CLINICAL HISTORY: Chest pain DISCUSSION: Li radha/tubes: None. Lungs: The lungs are well [...] Comments Creatine Kinase MB (test code = 36492-4) 1.50 0-5.0 [facility]landTroponiashish [id number] 17:01:00* Test Item Value Reference Range Interpretation Comments Troponin I (test code = IYW9033) -0.001 0-0.300 [facility] Moooo9779-91-60 16:53:00* Test Item Value Reference Range Interpretation Comments Sodium Level (test code = 2951-2) 137 136-145 [facility]landPotassium Aepel2024-32-70 16:53:00* Test Item Value Reference Range Interpretation Comments Potassium Level (test code = 2823-3) 4.2 3.5-5.1 [facility]landChloride Jiili4499-28-25 16:53:00* Test Item Value Reference Range Interpretation Comments Chloride Level (test code = 2075-0) 97 98-107 L [facility] MainlandCarbon Dioxide Nuypr6284-13-22 16:53:00* Test Item Value Reference Range Interpretation Comments Carbon Dioxide Level (test code = 2028-9) 23 22-29 [facility]landAnion Tzj1710-58-49 16:53:00* Test Item Value Reference Range Interpretation Comments Anion Gap (test code = 87285-5) 21.2 8-16 H [facility]landBlood Urea Wmhtuvbn6363-67-00 16:53:00* Test Item Value Reference Range Interpretation Comments Blood Urea Nitrogen (test code = 3094-0) 12 05-09 [facility]landCreatinine2018-06-26 16:53:00* Test Item Value Reference Range Interpretation Comments Creatinine (test code = 2160-0) 0.89 0.57-1.11 [facility]landBUN/Creatinine Mkgys0228-91-28 16:53:00* Test Item Value Reference Range Interpretation Comments BUN/Creatinine Ratio (test code = 3097-3) 13 04-08 [facility] MainlandEstimat Glomerular Filtration Rate 2018-04-09 16:53:00* Test Item Value Reference Range Interpretation Comments Estimat Glomerular Filtration Rate (test code = 14805-4) 60- >60 Ranges were taken from the National Kidney Disease Education Program and the [facility] Foundation literature.Reference ranges:60 or greater: Letlrv09-32 ( for 3 consecutive months): Chronic kidney disease 15 or less: Kidney failureHCA Houston Healthcare MainlandGlucose Clxla2331-01-20 16:53:00* Test Item Value Reference Range Interpretation Comments Glucose Level (test code = WOB3507) 110 74-118 [facility]landCalcium Yqfhw5805-89-67 16:53:00* Test Item Value Reference Range Interpretation Comments Calcium Level (test code = 22203-7) 10.3 8.4-10.2 H [facility]landMagnesium Ztshy5239-69-32 16:53:00* Test Item Value Reference Range Interpretation Comments Magnesium Level (test code = 69659-7) 2.0 1.3-2.1 [facility]landTotal Ngbdvrmzq3855-71-49 16:53:00* Test Item Value Reference Range Interpretation Comments Total Bilirubin (test code = 1975-2) 1.2 0.2-1.2 [facility] MainlandAspartate Amino Transf (AST/SGOT) 2018-04-09 16:53:00* Test Item Value Reference Range Interpretation Comments Aspartate Amino Transf (AST/SGOT) (test code = Aspartate Amino Transf (AST/SGOT)) 59 5-34 H [facility] MainlandAlanine Aminotransferase (ALT/SGPT) 2018-04-09 16:53:00* Test Item Value Reference Range Interpretation Comments Alanine Aminotransferase (ALT/SGPT) (test code = 1742-6) 51 0-55 [facility]landTotal Lvwlbgt3310-77-56 16:53:00* Test Item Value Reference Range Interpretation Comments Total Protein (test code = 2885-2) 9.0 6.5-8.1 H [facility] MainlandAlbumin2018-06-26 16:53:00* Test Item Value Reference Range Interpretation Comments Albumin (test code = 1751-7) 4.6 3.5-5.0 [facility]landGlobulin2018-06-26 16:53:00* Test Item Value Reference Range Interpretation Comments Globulin (test code = 20148-2) 4.4 2.3-3.5 H [facility] MainlandAlbumin/Globulin Fpyyt6606-36-69 16:53:00 * Test Item Value Reference Range Interpretation Comments Albumin/Globulin Ratio (test code = 1759-0) 1.0 0.8-2.0 [facility] MainlandAlkaline Cdsoetfrbaq8766-37-85 16:53:00* Test Item Value Reference Range Interpretation Comments Alkaline Phosphatase (test code = 6768-6) 94 40-150 [facility]Creatine [id number] 16:53:00* Test Item Value Reference Range Interpretation Comments Creatine Kinase (test code = 2157-6) 103 29-168 [facility]landAmylase [id number] 16:53:00* Test Item Value Reference Range Interpretation Comments Amylase Level (test code = 1798-8) 64 25-125 [facility]landLipase2018-06-26 16:53:00* Test Item Value Reference Range Interpretation Comments Lipase (test code = 3040-3) 32 8-78 [facility]landProthrombin Wokq7503-27-27 16:46:00* Test Item Value Reference Range Interpretation Comments Prothrombin Time (test code = 5902-2) 12.2 11.9-14.5 [facility]landProthromb Time International Ratio 2018-04-09 16:46:00* Test Item Value Reference Range Interpretation Comments Prothromb Time International Ratio (test code = 6301-6) 0.98 Oral Anticoagulant Therapy INR Values:1. Low Intensity Therapy 1.5 - 2.02 . Moderate Intensity Therapy 2.0 - 3.03. High Intensity Therapy(1) 2.5 - 3. 54. High Intensity Therapy(2) 3.0 - 4.05. Panic Value INR > 5.0 [facility]landActivated Partial Thromboplast Time 2018-04-09 16:46:00* Test Item Value Reference Range Interpretation Comments Activated Partial Thromboplast Time (test code = 34426-0) 27.7 23.8-35.5 [facility]landWhite Blood [id number] 16:40:00* Test Item Value Reference Range Interpretation Comments White Blood Count (test code = 6690-2) 9.25 4.8-10.8 [facility]landRed Blood [id number] 16:40:00* Test Item Value Reference Range Interpretation Comments Red Blood Count (test code = 789-8) 4.82 3.6-5.1 [facility]landHemoglobin2018-06-26 16:40:00* Test Item Value Reference Range Interpretation Comments Hemoglobin (test code = 21326-9) 16.7 12.0-16.0 H [facility]landHematocrit2018-06-26 16:40:00* Test Item Value Reference Range Interpretation Comments Hematocrit (test code = 4544-3) 46.5 34.2-44.1 H [facility]landMean Corpuscular Pweljm8762-46-84 16:40:00* Test Item Value Reference Range Interpretation Comments Mean Corpuscular Volume (test code = 787-2) 96.5 81-99 [facility]landMean Corpuscular Wcqqxezrcx6041-90-52 16:40:00* Test Item Value Reference Range Interpretation Comments Mean Corpuscular Hemoglobin (test code = 785-6) 34.6 28-32 H [facility]landMean Corpuscular Hemoglobin Concent 2018-04-09 16:40:00* Test Item Value Reference Range Interpretation Comments Mean Corpuscular Hemoglobin Concent (test code = 786-4) 35.9 31-35 H [facility]landRed Cell Distribution [id number] 16:40:00* Test Item Value Reference Range Interpretation Comments Red Cell Distribution Width (test code = 81093-8) 13.5 11.7 -14.4 [facility]landPlatelet [id number] 16:40:00* Test Item Value Reference Range Interpretation Comments Platelet Count (test code = 777-3) 369 140-360 H [facility]landNeutrophils (%) (Auto)2018-04-09 16:40:00 * Test Item Value Reference Range Interpretation Comments Neutrophils (%) (Auto) (test code = 91849-5) 53.7 38.7-80.0 [facility]landLymphocytes (%) (Auto)2018-04-09 16:40:00 * Test Item Value Reference Range Interpretation Comments Lymphocytes (%) (Auto) (test code = 736-9) 33.7 18.0-39.1 [facility]landMonocytes (%) (Auto)2018-04-09 16:40:00* Test Item Value Reference Range Interpretation Comments Monocytes (%) (Auto) (test code = 5905-5) 11.4 4.4-11.3 H [facility]landEosinophils (%) (Auto)2018-04-09 16:40:00 * Test Item Value Reference Range Interpretation Comments Eosinophils (%) (Auto) (test code = 713-8) 0.6 0.0-6.0 [facility]landBasophils (%) (Auto)2018-04-09 16:40:00* Test Item Value Reference Range Interpretation Comments Basophils (%) (Auto) (test code = 706-2) 0.3 0.0-1.0 [facility]landIM GRANULOCYTES %2018-04-09 16:40:00* Test Item Value Reference Range Interpretation Comments IM GRANULOCYTES % (test code = IM GRANULOCYTES %) 0.3 0.0- 1.0 [facility]landNeutrophils # (Auto)2018-04-09 16:40:00* Test Item Value Reference Range Interpretation Comments Neutrophils # (Auto) (test code = 751-8) 5.0 2.1-6.9 [facility]landLymphocytes # (Auto)2018-04-09 16:40:00* Test Item Value Reference Range Interpretation Comments Lymphocytes # (Auto) (test code = 60959-7) 3.1 1.0-3.2 [facility]landMonocytes # (Auto)2018-04-09 16:40:00* Test Item Value Reference Range Interpretation Comments Monocytes # (Auto) (test code = 742-7) 1.1 0.2-0.8 H [facility]landEosinophils # (Auto)2018-04-09 16:40:00* Test Item Value Reference Range Interpretation Comments Eosinophils # (Auto) (test code = 711-2) 0.1 0.0-0.4 [facility]landBasophils # (Auto)2018-04-09 16:40:00* Test Item Value Reference Range Interpretation Comments Basophils # (Auto) (test code = 704-7) 0.0 0.0-0.1 [facility]landAbsolute Immature Granulocyte (auto 2018-04-09 16:40:00* Test Item Value Reference Range Interpretation Comments Absolute Immature Granulocyte (auto (keyla t code = Absolute Immature Granulocyte (auto) 0.03 0-0.1 [facility]
--- OUTSIDE RECORDS SUMMARY | 2020-07-12 09:32 | XMS REPORT | Clinical Summary ---
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 Name Role Phone Jas Frederick MD PCP [...] Added automatically from request for joaquin pineda [id number] Encounters Care Team Description Date Type Specialty [...] of breast 08/15/2019 Transcribe Access Orders after 07/12/2019 Family History Medical History Relation Name Comments Heart disease Father Cancer Mother Diabetes Mother Heart disease Mother Relation Name Status Comments Father Mother Social History Date Tobacco Use Types Packs/Day Years Used Current Every Day Smoker Cigarettes 0.25 40 Smokeless Tobacco: Never Used Tobacco Cessation: Counseling Given: Yes Drinks/Week oz/Week Comments Alcohol Use No Sex Assigned at Date Recorded Not on file Last Filed Vital Signs Reading Time Taken [...] L ot 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 [id number] / / [employer] [facility] Floseal 5ml W/ Humn F2 Surgical N/A: N/A AGOSTO - [id number] Implants; BIOSCIENCE Implanted: 06/21/2017 at [facility] Expanders; HOSPITAL (Quantity not on file) Extenders; Surgical Wires [id number] / / [employer] Floseal 5ml W/ Humn F2 Surgical N/A: N/A AGOSTO - [id number] Implants; BIOSCIENCE Implanted: 06/21/2017 at [facility] Expanders; HOSPITAL (Quantity not on file) Extenders; Surgical Wires 09/11/2021 [id number] / / [id number] Part[employer] Absrbl Bonnie 5gm Surgical N/A: N/A MEDAFOR Mph - [id number] Implants; Implanted: 06/21/2017 at [facility] Expanders; HOSPITAL (Quantity not on file) Extenders; Surgical Wires [...] 08/21/2019 Mastod ynia TOMOSYNTHESIS 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 [id number] Procedure Note Hm Interface, Radiology Results Incoming [...] The common bile duct is not dilated. [id number] Performing Organization Address City/State/ZIP Code P melanie Number [facility] [address] [place] [address] * Estimated GFR (03/02/2020 5:05 AM CDT) Only the most recent of 3 results within the time period is included. Estimated GFR >=90 mL/min/1.73 m2 [place] Comment: ROMAN CATHOLIC Catergory Units [facility] Interpretation HOSPITAL G1 >=90 Normal or high [...] published in 2014. Specimen Performing Organization Address City/State/ZIP Code P melanie Number [facility] DEPARTMENT OF [address] [place] [address] PATHOLOGY AND GENOMIC MEDICINE [facility] [address] * CBC with platelet and differential (03/02/2020 5:05 AM CDT) Only the most recent of 3 results within the time period is included. WBC 6.4 4.2 - 11.0 k/uL [facility] RBC 4.11 4.04 - 5.86 m/uL [facility] HGB 13.1 11.5 - 15.3 g/dL [facility] HCT 40.0 34.0 - 45.0 % [facility] MCV 97.3 80.0 - 98.0 fL [facility] MCH 31.9 27.0 - 34.0 pg [facility] MCHC 32.8 31.5 - 36.5 g/dL [facility] RDW - SD 50.0 37.0 - 51.0 fL [facility] MPV 9.8 7.4 - 10.4 fL [facility] Platelet count 159 150 - 400 k/uL [facility] Nucleated RBC 0.00 /100 WBC [facility] Neutrophils 44.2 36.0 - 66.0 % [facility] Lymphocytes 43.8 24.0 - 44.0 % [facility] Monocytes 11.1 (H) 0.0 - 6.0 % [facility] Eosinophils 0.5 0.0 - 6.0 % [facility] Basophils 0.2 0.0 - 1.2 % [facility] Immature 0.2 0.0 - 1.0 % [place] granulocytes [facility] Specimen Blood Performing Organization Address City/State/ZIP Code P melanie Number [facility] [place] DEPARTMENT OF [address] [facility] [address] PATHOLOGY AND GENOMIC MEDICINE [facility] [address] [place] [address] * Comprehensive metabolic panel (03/02/2020 5:05 AM CDT) Only the most recent of 2 results within the time period is included. Sodium 139 135 - 150 mEq/L [facility] Potassium 3.6 3.5 - 5.0 mEq/L [facility] Chloride 102 98 - 112 mEq/L [facility] CO2 25 24 - 31 mmol/L [facility] Anion gap 12@ANIO 7 - 15 mEq/L [facility] BUN 12 7 - 18 mg/dL [facility] Creatinine 0.60 0.50 - 0.90 mg/dL [facility] Glucose 101 (H) 65 - 100 mg/dL [facility] Calcium 9.3 8.3 - 10.2 mg/dL [facility] Protein 6.8 6.3 - 8.3 g/dL [facility] Albumin 3.2 (L) 3.5 - 5.0 g/dL [facility] A/G ratio 0.9 0.7 - 3.8 [facility] Alkaline 63 0 - 104 U/L [place] phosphatase [facility] AST 33 10 - 35 U/L [facility] ALT 48 5 - 50 U/L [facility] Total bilirubin 0.4 0.2 - 1.2 mg/dL [facility] Specimen Blood Performing Organization Address City/[facility] [place] [address] PATHOLOGY AND GENOMIC MEDICINE [address] * Lactic acid level, SEPSIS - Now and repeat 2x every 3 hours (03/01/2020 5:00 PM CDT) Only the most recent of 3 results within the time period is included. Lactic acid 1.3 0.5 - 2.2 mmol/L [facility] Specimen Blood Performing Organization Address City/[facility] [place] [address] PATHOLOGY AND GENOMIC MEDICINE [address] * Troponin (03/01/2020 5:00 PM CDT) Only the most recent of 5 results within the time period is included. Troponin <0.006 0.000 - 0.040 ng/mL [place] Comment: ROMAN CATHOLIC In patients suspected of [place] having a myocardial HOSPITAL infarction, along with [...] 0.020 ng/mL Specimen Blood Performing Organization Address City/State/[facility] Code P melanie Number [facility] [address] [place] [address] PATHOLOGY AND GENOMIC MEDICINE [place] [address] * Blood culture, aerobic & anaerobic (03/01/2020 2:44 PM CDT) Only the most recent of 2 results within the time period is included. [facility] Blood culture No growth after 5 days of [place] isolate incubation. ROMAN CATHOLIC Comment: HOSPITAL Specimen Information Specimen Source: Blood Specimen Site: unknown Specimen Blood Performing Organization Address City/State/[facility] P melanie Number [facility] [address] [place] [address] PATHOLOGY AND GENOMIC MEDICINE [address] * Lipase level (03/01/2020 2:34 PM CDT) [facility] Lipase 18 13 - 60 U/L [facility] Specimen Blood Performing Organization Address City/State/ZIP Code P melanie Number [facility] DEPARTMENT OF [address] [place] [address] PATHOLOGY AND GENOMIC MEDICINE [facility] [address] [place] [address] [facility] * CT Chest W Contrast Abdomen [...] finding is unchanged from the previous study. [id number] Procedure Note Interface, Radiology Results Incoming - [...] finding is unchanged from the previous study. [id number] Performing Organization Address City/State/ZIP Code P melanie Number [facility] [address] [place] [address] * ECG 12 lead (03/01/2020 11:11 AM CDT) Only the most recent of 2 results within the time period is included. Ventricular 89 [facility] rate Atrial rate 89 [facility] MD interval 138 [facility] QRSD interval 92 [facility] QT interval 382 [facility] QTC interval 464 [facility] P axis 1 82 [facility] QRS axis 1 -12 [facility] T wave axis 67 [facility] EKG impression Normal sinus rhythm-Normal [facility] ECG-In automated comparison with ECG of 14-JAN-2020 16:56,-Non-specific change in ST segment in Anterior leads-T wave inversion no longer evident in Anterolateral leads- Specimen Narrative Performed At This result has an attachment that is n ot available. Performing Organization Address City/State/ZIP Code P melanie Number [facility] [address] [place] [address] * Urine culture (03/01/2020 11:04 AM CDT) Urine culture Proteus mirabilis [place] isolate >10-5 cfu/ml [facility]ATH[facility] The performance HOSPITAL characteristics of this assay on this isolate were validated by the Microbiology Laboratory at [facility]. This source has not been approved by [...] Specimen Urine Antibiotic Method Susceptibility Organism Ampicillin TRISATN >16 mcg/mL: Resistant Proteus mirabilis Amoxicillin/Clavulanate TRISTAN [...] mcg/mL: Resistant Proteus mirabilis Performing Organization Address City/State/ZIP Code P melanie Number [facility] DEPARTMENT OF [address] [place] [address] PATHOLOGY AND GENOMIC MEDICINE [address] * Urinalysis screen and microscopy, with reflex to culture (03/01/2020 10:50 AM CDT) Specimen site Clean catch [facility] Color, UA Nithya [facility] Appearance, UA Turbid [facility] Specific 1.027 1.001 - 1.035 [place] gravity, UA [facility] pH, UA 8.0 5.0 - 8.5 [facility] Protein, UA 2+ (A) Negative [facility] Glucose, UA Negative Negative [facility] Ketones, UA Trace (A) Negative [facility] Bilirubin, UA Negative Negative [facility] Blood, UA Small (A) Negative [facility] Nitrite, UA Positive (A) Negative [facility] Urobilinogen, Negative <2.0 [facility] Leukocyte Large (A) Negative [place] esterase, UA [facility] Epithelial Many /HPF [place] cells, UA [facility] WBC, UA >200 (H) 0 - 5 /HPF [facility] RBC, UA 21 (H) 0 - 5 /HPF [facility] Bacteria, UA Many (A) None seen [facility] Yeast, UA None seen [facility] Yeast with None seen [place] pseudohyphae, ROMAN CATHOLIC [facility] Triple Few [place] phosphate ROMAN CATHOLIC crystals, [facility] Specimen Urine Performing Organization Address City/[facility] P melanie Number [facility] DEPARTMENT OF [address] [place] [address] PATHOLOGY AND GENOMIC MEDICINE [address] * ECG ED Preliminary Interpretation - Not an Order (03/01/2020 10:49 AM CDT) Only the most recent of 2 results within the time period is included. Narrative Performed At Airsteo Birmingham MD 03/01/2020 2:32 PM ECG ED Preliminary Interpretation - Not an Order Performed by: Aristeo Birmingham MD Authorized by: Aristeo Birmingham MD ECG reviewed by ED Physician in the abs ence of a travel physical therapist: yes Interpretation: Interpretation: normal Rate: ECG rate: 89 ECG rate assessment: normal Rhythm: Rhythm: sinus rhythm QRS: QRS axis: Normal QRS intervals: Normal Conduction: Conduction: normal ST segments: ST segments: Normal T waves: T waves: normal * B natriuretic peptide (03/01/2020 10:43 AM CDT) Only the most recent of 2 results within the time period is included. BNP 18 0 - 100 pg/mL [facility] Specimen Blood Performing Organization Address City/[facility] P melanie Number [facility] [address] [place] [address] PATHOLOGY AND GENOMIC MEDICINE [address] * Creatine kinase, total (CPK) (03/01/2020 10:43 AM CDT) Pathologist [facility] Creatine kinase 59 26 - 192 U/L [facility] Specimen Performing Organization Address City/[facility] P melanie Number [facility] [place] [address] PATHOLOGY AND GENOMIC MEDICINE [address] * Hepatic function panel (03/01/2020 10:43 AM CDT) Pathologist [facility] Albumin 3.7 3.5 - 5.0 g/dL [facility] Total bilirubin 0.6 0.2 - 1.2 mg/dL [facility] Bilirubin <0.2 0.0 - 0.4 mg/dL [place] direct [facility] Alkaline 74 0 - 104 U/L [place] phosphatase [facility] Protein 7.9 6.3 - 8.3 g/dL [facility] ALT 69 (H) 5 - 50 U/L [facility] AST 54 (H) 10 - 35 U/L [facility] Specimen Blood Performing Organization Address City/[facility] [place] [address] PATHOLOGY AND GENOMIC MEDICINE [address] * Basic metabolic panel (03/01/2020 10:43 AM CDT) Pathologist [facility] Sodium 141 135 - 150 mEq/L [facility] Potassium 3.3 (L) 3.5 - 5.0 mEq/L [facility] Chloride 101 98 - 112 mEq/L [facility] CO2 24 24 - 31 mmol/L [facility] Anion gap 16@ANIO (H) 7 - 15 mEq/L [facility] BUN 16 7 - 18 mg/dL [facility] Creatinine 0.60 0.50 - 0.90 mg/dL [facility] Glucose 103 (H) 65 - 100 mg/dL [facility] Calcium 9.7 8.3 - 10.2 mg/dL [facility] Specimen Blood Performing Organization Address City/State/ZIP Code P melanie Number [facility] DEPARTMENT OF [address] [place] [address] PATHOLOGY AND GENOMIC MEDICINE [facility] [address] [place] [address] [address]OS[address]ITAL * CT Angiogram Pe Chest (01/14/2020 [...] document stability/resolution. Additional chronic findings as prior. [id number] Procedure Note Hm Interface, Radiology Results Incoming [...] document stability/resolution. Additional chronic findings as prior. [id number] Performing Organization Address City/[facility]/ZIP Code P melanie Number [facility] [address] [place] [address] * XR Chest 1 Vw (01/14/2020 6:13 [...] process or active disease of the chest. [id number] Procedure Note Hm Interface, Radiology Results Incoming - 01/14/2020 6:26 [...] process or active disease of the chest. [id number] Performing Organization Address [facility]/ZIP Code P melanie Number [facility] [address] [place] [address] * Influenza antigen test, reflex negative to RPP (01/14/2020 5:18 PM CDT) Influenza Negative for Influenza A/B [place] antigen antigen. ROMAN CATHOLIC Comment: [facility] Specimen Source: Nares Specimen Site: Right Specimen Nares - Right Performing Organization Address City/[facility] P melanie Number [facility] DEPARTMENT OF [address] [facility] [address] * COVID BioRef (NCOVB) (01/14/2020 5:17 PM CDT) [facility] COVID BioRef Not Detected Not Detected BIOREFERENCE (NCOVB) Comment: LAB Testing performed at [facility] [place] [address] NOTE: The COVID-19 assay has been cleared by the U.S. Food and Drug Administration under the Emergency Use Authorization (EUA). [email or web address] is designated as a high complexity laboratory by the Clinical Laboratory Improvement Amendments of 1988(CLIA) and is qualified to perform this test. ASSAY INFORMATION: Real Time RT-PCR NOTE: Please consider re-collection of a new specimen, if clinically indicated. Specimen Serum Performing Organization Address City/[facility]/ZIP Code P melanie Number [facility] [address] [place] [address] PATHOLOGY AND [facility] BIOREFERENCE LAB [address] [place] [address] * Group A strep, rapid antigen (01/14/2020 5:17 PM CDT) [facility] Group A strep, Negative for Group A [place] rapid antigen Streptococcus antigen. ROMAN CATHOLIC result Comment: [facility] Specimen Source: Throat Specimen Site: Not otherwise specified Specimen Throat - Not otherwise specified Performing Organization Address City/State/ZIP Code P melanie Number [facility] [address] [place] [address] * Strep screen culture (01/14/2020 5:17 PM CDT) [facility] Strep screen No beta hemolytic Streptococci [place] [facility] culture isolate isolated ROMAN CATHOLIC Comment: [facility] Specimen Source: Throat Specimen Site: Not otherwise specified Specimen Throat - Not otherwise specified Performing Organization Address City/State/ZIP Code P melanie Number [facility] DEPARTMENT OF [address] [place] [address] PATHOLOGY AND GENOMIC MEDICINE [facility] [address] [place], [place] [address] [place] [address] * Respiratory pathogen panel (01/14/2020 5:15 PM CDT) Respiratory Negative for all pathogens [place] pathogen panel tested: ROMAN CATHOLIC Negative for Adenovirus HOSPITAL Negative for Coronavirus [...] Specimen Nares - Right Performing Organization Address City/State/[facility] Code P melanie Number [facility] DEPARTMENT OF [address] [place] [address] PATHOLOGY AND GENOMIC MEDICINE [address] * Mammo Breast Diagnostic Tomosynthesis Bilateral (08/21/2019 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 This facility is accredited by [employer] for Mammography. A negative x-ray report should not mike y biopsy if a dominant or clinically suspicious mass is present. Not all c ancers are identified by x-ray. 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
[2020-07-12] MEDS ORDERED: MECLIZINE HCL 12.5 MG TAB PO ONE (09:45)
[2020-07-12] MEDS ORDERED: SODIUM CHLORIDE 0.9% 500ML 500 ML IV STA (09:47)
[2020-07-12 09:49] LABS: BASOPHILS % 0.5 % (0.0-1.0); EOSINOPHILS # (AUTO) 0.1 (0.0-0.4); EOSINOPHILS % 0.8 % (0.0-6.0); HEMOGLOBIN 13.5 g/dL (12.0-16.0); LYMPHOCYTES # (AUTO) 3.6 (1.0-3.2); MEAN CORPUSCULAR HEMOGLOBIN 30.8 pg (28-32); MEAN CORPUSCULAR HGB CONC 32.1 g/dL (31-35); MEAN CORPUSCULAR VOLUME 95.7 fL (81-99); MONOCYTES # (AUTO) 0.6 (0.2-0.8); MONOCYTES % 10.5 % (4.4-11.3); NEUTROPHILS # (AUTO) 1.6 (2.1-6.9); PLATELET COUNT 282 x10e3/uL (140-360); RED BLOOD COUNT 4.39 x10e6/uL (3.6-5.1); RED CELL DISTRIBUTION WIDTH 14.2 % (11.7-14.4)
--- NOTE | 2020-07-12 09:52 | Emergency Department Note ---
History of Present Illnes History of Present Illness Chief Complaint: Flu Like Symptoms History of Present Illness This is a 59 year old female Chief Complaint Comment Patient in from home with complaints of sore throat, headache, dizziness and mild fever over the last few days. Patient reports that she feels off balance but denies that the room is "spinning". Patient has a history of lung cancer and states that she needs to have a PET scan done but has not followed up. Historian: Patient Arrival Mode: Car Monument Stonecutter Required: No Onset (how long ago): day(s) (3) Location: Head Quality: Light headed, off balance Radiation: Reports non-radiation Severity: moderate Onset quality: gradual Duration (how long): day(s) (3) Timing of current episode: constant Progression: worsening Chronicity: new Context: Denies recent illness Relieving factors: none Exacerbating factors: none Associated symptoms: Reports other (Sore throat) Treatments prior to arrival: NSAID Past Medical/Family History Physician Review I have reviewed the patient's past medical and family history. Any updates have been documented here. Past Medical History Recent Fever: Yes Clinical Suspicion of Infectio: Yes New/Unexplained Change in Ment: No Past Medical History: Hypertension, Cancer, Depression, Hyperlipedemia Other Medical History: lesions in head left lung ca Other Surgery: X 2 , TONSILLECTOMY, BREAST BIOPSY lung lung resection Other Last Tetanus: UTD Review of Systems Review of Systems Constitutional: Reports no symptoms EENTM: Reports as per HPI Cardiovascular: Reports no symptoms Respiratory: Reports no symptoms Gastrointestinal: Reports no symptoms Genitourinary: Reports no symptoms Musculoskeletal: Reports no symptoms Integumentary: Reports no symptoms Neurological: Reports as per HPI, Reports headache Psychological: Reports no symptoms Endocrine: Reports no symptoms Hematological/Lymphatic: Reports no symptoms Physical Exam Related Data Allergies: Uncoded Allergies: PENICILLIN (Allergy, Severe, 07/18/12) Triage Vital Signs Vital Signs Date Time Temp Pulse Resp B/P (MAP) Pulse Ox O2 Delivery O2 Flow Rate FiO2 07/12/20 09:22 98.7 85 18 165/107 100 Room Air Vital signs reviewed: Yes Physical Exam CONSTITUTIONAL Constitutional: Present well-developed, Present well-nourished HENT HENT: Present normocephalic, Present atraumatic, Present oropharynx clear/moist, Present nose normal HENT L/R: Present left ext ear normal, Present right ext ear normal EYES Eyes: Reports PERRL, Reports conjunctivae normal NECK Neck: Present ROM normal PULMONARY Pulmonary: Present effort normal, Present breath sounds normal CARDIOVASCULAR Cardiovascular: Present regular rhythm, Present heart sounds normal, Present capillary refill normal, Present normal rate GASTROINTESTINAL Abdominal: Present soft, Present nontender, Present bowel sounds normal GENITOURINARY Genitourinary: Present exam deferred SKIN Skin: Present warm, Present dry MUSCULOSKELETAL Musculoskeletal: Present ROM normal NEUROLOGICAL Neurological: Present alert, Present oriented x 3, Present no gross motor or sensory deficits; Absent cranial nerve deficit, Absent abnormal coordination, Absent weakness PSYCHOLOGICAL Psychological: Present mood/affect normal, Present judgement normal Results Laboratory Lab results reviewed: Yes Imaging Imaging results reviewed: Yes Diagnostics Tests Diagnostic test(s) reviewed: Yes Procedures 12 Lead ECG Interpretation ECG Interpretation : Monument Stonecutter: Interpreted by ED physician Rhythm: sinus rhythm Rate: normal QRS axis: normal ST segments normal: Yes T waves normal: Yes Clinical Impression: normal ECG Critical Care Time Total Critical Care Time (min): 31 Time ED Physician saw patient: 09:40 Critcal care necessary due to: NURSING CARE PARTNER failure or compromise Critcal care time spent by me: develop tx plan w patient/surrogate, evaluation patient response to tx, examination of patient, obtaining hx from patient/surrogate, order/perform tx or interventions, pulse oximetry, re- evaluation of patient condition, review of old charts Assessment & Plan Medical Decision Making MDM 59-year-old female presents for dizziness, lightheadedness, headache 3 days. She has past medical history significant for lung cancer with possible brain metastases and has not been followed up for this. Examination is largely unremarkable, no gross focal neurologic deficits, cranial nerves II through XII are intact, no cerebellar signs. Initial differential significant for posterior stroke versus BPPV versus brain metastases along others. Workup sig for Flu B positive. CT brain w/wo shows no sig findings. Discussed management with patient and informed her that I cannot be 100% certain that she does not have a stroke or some kind of metastatic disease. I offered admission via transfer to [facility] that she would prefer to be discharged home with follow-up and observation basis. This is reasonable as her symptoms are likely secondary to her influenza. Instructed her on an spelled influenza and a strict return precautions. Patient is stable for discharge. Assessment & Plan Final Impression: (1) Influenza B Depart Disposition: HOME, SELF-CARE Last Vital Signs Date Time Temp Pulse Resp B/P (MAP) Pulse Ox O2 Delivery O2 Flow Rate FiO2 07/12/20 09:22 98.7 85 18 165/107 100 Room Air Home Meds Reported Medications Dicyclomine Hcl (BENTYL) 10 Mg Capsule, 20 MG PO Q6H PRN for ABDOMINAL PAIN, CAP 01/18/16 Ondansetron (ZOFRAN ODT) 4 Mg Tab.rapdis, 4 MG Q6H PRN for NAUSEA, TAB 01/17/16 Pantoprazole Sodium* (PROTONIX) 40 Mg Tablet.dr, 40 MG PO DAILY, TAB 01/18/16 Medications in the ED Meclizine HCl 25 mg ONCE ONCE PO ; Start 07/12/20 at 09:45; Stop 07/12/20 at 09:46 RADHA HIGGINS MD Jul 12, 2020 09:52
[2020-07-12] MEDS ORDERED: ACETAMINOPHEN 325 MG TAB PO ONE (10:00)
[2020-07-12 10:07] LABS: STREPTOCOCCUS GRP A ANTIGEN NEGATIVE (NEGATIVE)
[2020-07-12 10:12] LABS: ALANINE AMINOTRANSFERASE 17 IU/L (0-55); ALBUMIN 4.2 g/dL (3.5-5.0); ALBUMIN/GLOBULIN RATIO 1.4 (0.8-2.0); ALKALINE PHOSPHATASE 63 IU/L (40-150); ANION GAP 12.8 mmol/L (8-16); BLOOD UREA NITROGEN 7 mg/dL (7-26); BUN/CREATININE RATIO 11 (6-25); CALCIUM 9.6 mg/dL (8.4-10.2); CARBON DIOXIDE 22 mmol/L (22-29); CHLORIDE 110 mmol/L (98-107); CREATININE, SERUM 0.64 mg/dL (0.57-1.11); EST GLOMERULAR FILTRATION RATE > 60 ML/MIN (60-); GLUCOSE 81 mg/dL (74-118); POTASSIUM 3.8 mmol/L (3.5-5.1); SODIUM 141 mmol/L (136-145)
[2020-07-12 10:18] LABS: EOSINOPHILS % (MANUAL) 1 % (0-7); LYMPHOCYTES % (MANUAL) 57 % (19-48); METAMYELOCYTES % (MANUAL) 1 % (0-0); MONOCYTES % (MANUAL) 9 % (3.4-9.0); NEUTROPHILS % (MANUAL) 25 % (40-74); PLATELET ESTIMATE ADEQUATE; PLATELET MORPHOLOGY COMMENT RARE EDTA CLUMPING; RBC MORPHOLOGY COMMENT NORMAL
[2020-07-12 10:20] LABS: INFLUENZAE A&B ANTIGEN (RAPID) POSITIVE FLU B (NEGATIVE)
--- NOTE | 2020-07-12 10:25 | Diagnostic Imaging Report ---
EXAMINATION: CHEST SINGLE (PORTABLE) INDICATION: Dizziness, lung cancer COMPARISON: Chest radiograph of 04/09/2018 FINDINGS: LINES/TUBES:None LUNGS:The lungs are well-inflated. No focal consolidation or pulmonary edema. Mild bibasilar subsegmental atelectasis. PLEURA:No pleural effusion or pneumothorax. MEDIASTINUM:The cardiomediastinal silhouette appears normal in size and shape. BONES/SOFT TISSUES:No acute osseous injury. ABDOMEN:No free air under the diaphragm. IMPRESSION: Mild bibasilar subsegmental atelectasis. No focal pneumonia or pulmonary edema. Signed by: Tata Reeves MD on 07/12/2020 10:21 AM
[2020-07-12 10:34] LABS: INR 0.92; PROTHROMBIN TIME 12.8 seconds (11.9-14.5)
[2020-07-12] MEDS ORDERED: KETOROLAC TROMETHAMINE 30 MG/ML VIAL IV STA (10:42)
--- NOTE | 2020-07-12 10:46 | Diagnostic Imaging Report ---
CT BRAIN WO HISTORY: Dizziness, history of lung cancer COMPARISON: None. TECHNIQUE: Noncontrast axial scans were obtained from skull base to the vertex. Coronal and sagittal reconstructions obtained from the axial data. One or more of the following dose reduction techniques were used: Automated exposure control, adjustment of the mA and/or kV according to patient size, and/or utilization of iterative reconstruction technique. DISCUSSION: Scalp/Skull: Unremarkable. Brain sulci: Appropriate for patient's age. Ventricles: Normal in size and configuration. No hydrocephalus. Extra-axial spaces: No masses or fluid collections. Minimal carotid siphon calcifications. Parenchyma: Mild periventricular white matter hypodensities are likely chronic microvascular ischemic changes. Otherwise, no mass, hemorrhage, or large vascular territory acute infarct. Dural sinuses: No abnormal densities. Sellar/Suprasellar region: Intact. Skull base: Intact. 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 IMPRESSION: 1. No acute intracranial abnormalities. 2. No definite evidence for metastatic disease. Nonemergent contrast-enhanced brain MRI can be obtained for a more sensitive evaluation for metastases if clinically feasible. 3. Mild supratentorial chronic microvascular ischemic change. Signed by: Dr. Noah Tamayo M.D. on 07/12/2020 10:42 AM
[2020-07-12] MEDS ORDERED: SODIUM CHLORIDE 0.9% 50ML 50 ML ONE (11:14)
[2020-07-12] MEDS ORDERED: IOPAMIDOL 370 MG/ML 200 ML INFUS..BTL INJ ONE (11:15)
--- NOTE | 2020-07-12 11:19 | Diagnostic Imaging Report ---
CT BRAIN W HISTORY: Dizziness COMPARISON: Head CT without contrast 07/12/2020 TECHNIQUE: CT of the head was performed after the administration of intravenous contrast. Coronal/sagittal reformations were created. One or more of the following dose reduction techniques were used: Automated exposure control, adjustment of the mA and/or kV according to patient size, and/or utilization of iterative reconstruction technique. DISCUSSION: Scalp/Skull: Unremarkable. Brain sulci: Appropriate for patient's age. Ventricles: Normal in size and configuration. No hydrocephalus. Extra-axial spaces: No masses or fluid collections. Minimal carotid siphon calcifications. Parenchyma: Mild periventricular white matter hypodensities are likely chronic microvascular ischemic changes. Otherwise, no mass, hemorrhage, or large vascular territory acute infarct. Dural sinuses: No abnormal densities. Sellar/Suprasellar region: Intact. Skull base: Intact. 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 IMPRESSION: 1. No acute intracranial abnormalities. 2. No definite evidence for metastatic disease. 3. Mild supratentorial chronic microvascular ischemic change. Signed by: Dr. Noah Tamayo M.D. on 07/12/2020 11:15 AM
[2020-07-12 12:00] VITALS: BP 143/76
== END 2020-07-12 12:03 | disposition home or self-care (01) ==
LOC: ER 09:30
DX: J11.1 Influenza due to unidentified influenza virus with other respiratory manifestations (principal); R42 Dizziness and giddiness; R51 Headache; I10 Essential (primary) hypertension; E78.5 Hyperlipidemia, unspecified; Z85.118 Personal history of other malignant neoplasm of bronchus and lung; Z03.818 Encounter for observation for suspected exposure to other biological agents ruled out
CPT/HCPCS: 36415; 70450; 70460; 71045; 80053; 83518; 84484; 85025; 85610; 87070; 87400; 93005; 99284; J1885; J7040; J8597; Q9967; U0002

== ENCOUNTER 2021-03-25 23:38 | Emergency (ER) | payer BC ==
[~2021-03-25] VITALS: Ht 170.2 cm; Wt 59.0 kg
[2021-03-25] MEDS ORDERED: ONDANSETRON HCL INJ 2MG/ML 2ML 2 MG/ML VIAL IV STA (23:48)
[2021-03-25] MEDS ORDERED: ALBUTEROL SULF 0.083% NEB SOLN 3 ML NEB NEB STA (23:51)
[2021-03-26] MEDS ORDERED: METHYLPREDNISOLONE SOD SUCC 125 MG/2ML VIAL IV ONE
[2021-03-26] MEDS ORDERED: IPRATROPIUM BROMIDE 0.02% 2.5 ML NEB NEB ONE
[2021-03-26 00:04] LABS: BASOPHILS % 0.4 % (0.0-1.0); EOSINOPHILS # (AUTO) 0.1 (0.0-0.4); EOSINOPHILS % 0.7 % (0.0-6.0); HEMATOCRIT 42.1 % (34.2-44.1); HEMOGLOBIN 13.5 g/dL (12.0-16.0); LYMPHOCYTES # (AUTO) 3.9 (1.0-3.2); LYMPHOCYTES % 37.8 % (18.0-39.1); MEAN CORPUSCULAR HEMOGLOBIN 31.5 pg (28-32); MEAN CORPUSCULAR HGB CONC 32.1 g/dL (31-35); MEAN CORPUSCULAR VOLUME 98.1 fL (81-99); MONOCYTES # (AUTO) 0.9 (0.2-0.8); MONOCYTES % 8.6 % (4.4-11.3); NEUTROPHILS # (AUTO) 5.4 (2.1-6.9); NEUTROPHILS % 52.1 % (38.7-80.0); PLATELET COUNT 276 x10e3/uL (140-360); RED BLOOD COUNT 4.29 x10e6/uL (3.6-5.1); RED CELL DISTRIBUTION WIDTH 13.8 % (11.7-14.4)
[2021-03-26 00:23] LABS: ALANINE AMINOTRANSFERASE 16 IU/L (0-55); ALBUMIN 3.7 g/dL (3.5-5.0); ALBUMIN/GLOBULIN RATIO 1.1 (0.8-2.0); ALKALINE PHOSPHATASE 95 IU/L (40-150); ANION GAP 13.4 mmol/L (8-16); BLOOD UREA NITROGEN 14 mg/dL (7-26); BUN/CREATININE RATIO 19 (6-25); CALCIUM 8.9 mg/dL (8.4-10.2); CARBON DIOXIDE 24 mmol/L (22-29); CHLORIDE 108 mmol/L (98-107); CREATINE KINASE 72 IU/L (29-168); CREATININE, SERUM 0.74 mg/dL (0.57-1.11); EST GLOMERULAR FILTRATION RATE > 60 ML/MIN (60-); GLUCOSE 131 mg/dL (74-118); POTASSIUM 3.4 mmol/L (3.5-5.1); SODIUM 142 mmol/L (136-145)
[2021-03-26] MEDS ORDERED: ACETAMINOPHEN 325 MG TAB PO ONE (00:45)
[2021-03-26 01:21] VITALS: BP 136/90
== END 2021-03-26 01:30 | disposition home or self-care (01) ==
LOC: ER 23:49
DX: R06.02 Shortness of breath (principal); R05 Cough; J44.1 Chronic obstructive pulmonary disease with (acute) exacerbation; I10 Essential (primary) hypertension; E78.5 Hyperlipidemia, unspecified; Z85.118 Personal history of other malignant neoplasm of bronchus and lung; F17.210 Nicotine dependence, cigarettes, uncomplicated
CPT/HCPCS: 36415; 71045; 80053; 82550; 82553; 83880; 84484; 85025; 93005; 94640; 99284

== ENCOUNTER 2021-06-30 09:32 | Emergency (ER) | payer BC ==
[~2021-06-30] VITALS: Ht 170.2 cm; Wt 59.0 kg
[2021-06-30] MEDS ORDERED: DEXAMETHASONE 4 MG TAB PO STA (09:55)
[2021-06-30] MEDS ORDERED: ALBUTEROL/IPRATROPIUM 3 ML NEB NEB ONE (10:00)
[2021-06-30 11:33] VITALS: BP 132/88
== END 2021-06-30 11:37 | disposition home or self-care (01) ==
LOC: ER 09:57
DX: R05 Cough (principal); J44.1 Chronic obstructive pulmonary disease with (acute) exacerbation; I10 Essential (primary) hypertension; E78.5 Hyperlipidemia, unspecified; F32.9 Major depressive disorder, single episode, unspecified; Z85.118 Personal history of other malignant neoplasm of bronchus and lung
CPT/HCPCS: 71045; 99283; J8540; U0002